=== PATIENT | male | born 1990 | race Caucasian/White ===

== ENCOUNTER 2017-01-27 08:17 | Inpatient (IN) | payer BC ==
[2017-01-27 10:06] VITALS: BMI 27.1
--- NOTE | 2017-01-27 11:25 | HP ---
Admission [facility] Chief Complaint: REHAB TX FOR OPIOID DEPENDENCE Allergies/Adverse Reactions: Allergies Allergy/AdvReac Type Severity Reaction Status Date / Time NKDA Allergy Uncoded 01/27/17 10:23 History of Present Illness: 26 Y/O H/M WITH A HX OF HEROIN DEPENDENCE ON MMTP SEEKING REHAB TX. Exam Limitations: No Limitations - Ebola screening Have you traveled outside of the country in the last 21 days: No Have you had contact with anyone from an Ebola affected area: No Have you been sick,other than usual withdrawal symptoms: No Do you have a fever: No - Review of Systems Constitutional: Chills, Night Sweats, Changes in sleep EENT: reports: Blurred Vision, Tearing, Nose Congestion Respiratory: reports: No Symptoms reported Cardiac: reports: Lightheadedness GI: reports: Constipated, Diarrhea, Nausea, Poor Fluid Intake, Vomiting : reports: Dysuria Musculoskeletal: reports: Back Pain, Joint Pain, Muscle Pain Integumentary: reports: Bruising (IVD INJ SITES ON BOTH FOREARMS) Neuro: reports: Headache, Dizziness Endocrine: reports: No Symptoms Reported Hematology: reports: No Symptoms Reported Psychiatric: reports: Orientated x3, Anxious Other Systems: Reviewed and Negative Patient History - Patient Medical History Hx Anemia: No Hx Asthma: No Hx Chronic Obstructive Pulmonary Disease (COPD): No Hx Cardiac Disorders: No Hx Hypertension: No Hx Hypercholesterolemia: No HX Cerebrovascular Accident: No Hx Seizures: No Hx Diabetes: No Hx Gastrointestinal Disorders: No Hx Genitourinary Disorders: No Hx Sexually Transmitted Disorders: No Hx Renal Disease (ESRD): No Hx Thyroid Disease: No Hx Human Immunodeficiency Virus (HIV): No (DON'T REMEMBER TESTING BUT WANTS ONE TODAY.) Hx Hepatitis C: No Hx Depression: No Hx Suicide Attempt: No (DENIES) Hx Schizophrenia: No - Patient Surgical History Past Surgical History: No Hx Neurologic Surgery: No Hx Cataract Extraction: No Hx Cardiac Surgery: No Hx Lung Surgery: No Hx Breast Surgery: No Hx Breast Biopsy: No Hx Abdominal Surgery: No Hx Appendectomy: No Hx Cholecystectomy: No Hx Genitourinary Surgery: No Hx Orthopedic Surgery: No Anesthesia Reaction: No - PPD History Previous Implant?: Yes Documented Results: Negative w/o proof Implanted On Prior R Admission?: No PPD to be Administered?: Yes - Reproductive History Patient is a Female of Child Bearing Age (11 -55 yrs old): No (MALE) - Smoking Cessation Smoking history: Current every day smoker Have you smoked in the past 12 months: Yes Aproximately how many cigarettes per day: 8 Cigars Per Day: 0 Hx Chewing Tobacco Use: No Initiated information on smoking cessation: Yes 'Breaking Loose' booklet given: 01/27/17 - Substance & Tx. History Hx Alcohol Use: No Hx Substance Use: Yes (HEROIN) Substance Use Type: Heroin Hx Substance Use Treatment: Yes (CURRENTLY IN [facility]; LAST DOSE TODAY METHADONE 45 MG DAILY) - Substances Abused Heroin Route: Injection Frequency: Daily Amount used: 10 BAGS DAILY ($100) Age of first use: 22 Date of Last Use: 01/20/17 Family Disease History - Family Disease History Family History: Denies Admission Physical Exam [facility] Vital Signs Vital Signs: Vital Signs - 24 hr 01/27/17 10:02 Temperature 97 F L Pulse Rate 61 Respiratory 20 Rate Blood Pressure 119/69 - Physical General Appearance: Yes: No Apparent Distress, Nourished, Anxious, Other ( DROWSY BUT AROUSABLE) HEENTM: Yes: EOMI, Normocephalic, KASH, Pharynx Normal Respiratory: Yes: Chest Non-Tender, Lungs Clear, Normal Breath Sounds, No Respiratory Distress Neck: Yes: No masses,lesions,Nodules, Supple, Trachea in good position Breast: Yes: Breast Exam Deferred Cardiology: Yes: Regular Rhythm, Regular Rate, S1, S2 Abdominal: Yes: Normal Bowel Sounds, Non Tender, Soft Genitourinary: Yes: Other (N/C) Back: Yes: Within Normal Limits Musculoskeletal: Yes: full range of Motion, Gait Steady Extremities: Yes: Normal Range of Motion, Non-Tender Neurological: Yes: 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 - Detox or Rehab Claeared for Rehab Admission: Yes BHS Breath Alcohol Content Breath Alcohol Content: 0 Urine Drug Screen - Results Drug Screen Negative: No Urine Drug Screen Results: MTD-Methadone
[2017-01-27] MEDS ORDERED: MAG HYDROX/AL HYDROX/SIMETH 30 ML UNIT-DOSE CUP PO PRN (11:39)
[2017-01-27] MEDS ORDERED: MAGNESIUM CITRATE 300 ML BOTTLE PO PRN (11:39)
[2017-01-27] MEDS ORDERED: LOPERAMIDE HCL 2 MG CAPSULE PO PRN (11:39)
[2017-01-27] MEDS ORDERED: NICOTINE POLACRILEX 2 MG GUM BUC PRN (11:39)
[2017-01-27] MEDS ORDERED: diphenhydrAMINE HCL 50 MG CAPSULE PO PRN (11:39)
[2017-01-27] MEDS ORDERED: hydrOXYzine PAMOATE 25 MG CAPSULE (FP) PO PRN (11:39)
[2017-01-27] MEDS ORDERED: MENTHOL/PHENOL 1 EACH UD MM PRN (11:39)
[2017-01-27] MEDS ORDERED: guaiFENesin/D-METHORPHAN HB 10 ML UNIT-DOSE CUPS PO PRN (11:39)
[2017-01-27] MEDS ORDERED: P-EPHED 60MG/TRIPROLIDI 2.5MG TABLET PO PRN (11:39)
[2017-01-27] MEDS ORDERED: IBUPROFEN 400 MG TABLET (FP) PO PRN (11:39)
[2017-01-27] MEDS ORDERED: MAGNESIUM HYDROX 2400MG/30ML ORAL SUSPENSION 30 ML CUP PO PRN (11:39)
[2017-01-27 13:16] LABS: MCH 31.7 pg (25.7-33.7); MCHC 35.1 g/dl (32.0-35.9); MEAN CELL VOLUME 90.5 fl (80-96); MEAN PLT VOLUME 9.1 fl (7.5-11.1); PLATELET COUNT 155 K/MM3 (134-434); RDW 13.4 % (11.9-15.9); WHITE BLOOD COUNT 5.1 K/mm3 (4.0-10.0)
[2017-01-27 13:28] LABS: ALK PHOS 64 U/L (45-117); ANION GAP 5 (8-16); BILIRUBIN,TOTAL 0.6 mg/dL (0.2-1.0); CALCIUM 9.1 mg/dL (8.5-10.1); CO2 33 mmol/L (21-32); CREATININE 1.1 mg/dL (0.7-1.3); GLUCOSE,RANDOM 97 mg/dL (74-106); SGOT/AST 24 U/L (15-37); SGPT/ALT 31 U/L (12-78); TOT PROT 7.6 g/dl (6.4-8.2)
[2017-01-27] MEDS: NICOTINE 14 MG/24 HOURS TOPICAL PATCH TD SCH (13:39)
[2017-01-27 13:49] LABS: HIV 1 & 2 AB NEGATIVE; HIV 1 AGp24 NEGATIVE
--- NOTE | 2017-01-27 14:05 | HP ---
Psychiatrist Admission - Data Date of interview: 01/27/17 Admission source: [facility] Identifying data: This is the first 5N inpatient rehabilitation admission for this 26 year old single male, who is unemployed and residing in senior living. Medical History: reports a good physical health, smokes cigaretets 7 a day, on MMTP 45 mg/daily. Psychiatric History: denies history of psychiatric treatment. Physical/Sexual Abuse/Trauma History: denies history of sexual, physical and verbal abuse. Additional Comment: reports has a twin brother who is at [facility] program, patient reports mother when he was 13 year old, raised by grandmother. Vital Signs: Vital Signs - 24 hr 01/27/17 01/27/17 10:02 13:45 Temperature 97 F L 97.3 F L Pulse Rate 61 56 L Respiratory 20 18 Rate Blood Pressure 119/69 120/81 Allergies/Adverse Reactions: Allergies Allergy/AdvReac Type Severity Reaction Status Date / Time No Known Drug Allergies Allergy Unknown Verified 01/27/17 12:10 NKDA Allergy Uncoded 01/27/17 10:23 Date of last physical exam: 01/27/17 Concur with the findings of this exam: Yes - Substance Abuse/Tx History Hx Alcohol Use: No Hx Substance Use: Yes Substance Use Type: Heroin (inecting heroin, re[orts he relapsed twice on heroin , started heroin when was 22 year old) Hx Substance Use Treatment: Yes ([facility]) - Admission Criteria Previous failed treatment: Yes Poor recovery environment: Yes Comorbidities: No Lacks judgement: Yes Mental Status Exam - Mental Status Exam Alert and Oriented to: Time, Place, Person Cognitive Function: Good Patient Appearance: Well Groomed Mood: Anxious Affect: Appropriate, Mood Congruent, Normal Range Patient Behavior: Appropriate, Cooperative Speech Pattern: Clear, Appropriate Voice Loudness: Normal Thought Process: Intact Thought Disorder: Not Present Hallucinations: Denies Suicidal Ideation: Denies Homicidal Ideation: Denies Insight/Judgement: Fair Sleep: Difficulty falling asleep Appetite: Good Muscle strength/Tone: Normal Gait/Station: Normal Psychiatric Findings - Problem List ([place] 1, 2,3) (1) Nicotine dependence Current Visit: Yes Status: Acute Qualifiers: Nicotine product type: cigarettes Substance use status: in withdrawal Qualified Code(s): F17.213 - Nicotine dependence, cigarettes, with withdrawal (2) Methadone maintenance therapy patient Current Visit: Yes Status: Chronic (3) Opioid dependence Current Visit: Yes Status: Acute (4) Opioid-induced sleep disorder Current Visit: Yes Status: Acute - Initial Treatment Plan Initial Treatment Plan: patient made aware of a Benadryl PRN for insomnia and Vistaril PRN for anxiety, monitor progress as needed.
[2017-01-27] MEDS ORDERED: TUBERCULIN PPD 5 TU/0.1ML VIAL ID ONE (14:16)
[2017-01-27 15:08] LABS: SICKLE CELL SCREEN NEGATIVE (NEGATIVE)
[2017-01-27 17:34] LABS: URINE APPEARANCE CLEAR; URINE BILIRUBIN NEGATIVE (NEGATIVE); URINE BLOOD NEGATIVE (NEGATIVE); URINE COLOR YELLOW; URINE GLUCOSE (UA) NEGATIVE (NEGATIVE); URINE KETONE NEGATIVE (NEGATIVE); URINE LEUK ESTERASE TRACE (NEGATIVE); URINE NITRITE NEGATIVE (NEGATIVE); URINE PROTEIN NEGATIVE (NEGATIVE); URINE UROBILINOGEN NEGATIVE mg/dL (0.2-1.0)
[2017-01-27 17:43] LABS: URINE BACTERIA RARE /hpf (NONE SEEN); URINE HYALINE CAST 1 /lpf; URINE MUCUS RARE; URINE RBC <1 /hpf (0-3); URINE WBC 1 /hpf (3-5)
[2017-01-27] MEDS: THIAMINE HCL 100 MG TABLET (FP) PO SCH (21:47)
[2017-01-27] MEDS: hydrOXYzine PAMOATE 50 MG CAPSULE (FP) PO PRN (21:49)
[2017-01-28] MEDS ORDERED: METHADONE HCL 5 MG TABLET ONE (05:34)
[2017-01-28] MEDS ORDERED: METHADONE HCL 40 MG DISPERSABLE TABLET ONE (05:35)
[2017-01-28] MEDS ORDERED: METHADONE HCL 40 MG DISPERSABLE TABLET PO SCH (06:00)
[2017-01-28] MEDS: METHADONE 40 MG, METHADONE 5 MG PO SCH (06:38)
[2017-01-28] MEDS: PRENATAL VITAMINS W/ FOLIC ACID TABLET (FP) PO SCH (09:58)
[2017-01-28] MEDS: NICOTINE 14 MG/24 HOURS TOPICAL PATCH TD SCH (09:58)
[2017-01-28] MEDS: hydrOXYzine PAMOATE 50 MG CAPSULE (FP) PO PRN ×2 (10:00→21:27)
[2017-01-28] MEDS: THIAMINE HCL 100 MG TABLET (FP) PO SCH (21:26)
[2017-01-29] MEDS ORDERED: METHADONE HCL 40 MG DISPERSABLE TABLET ONE (03:33)
[2017-01-29] MEDS ORDERED: METHADONE HCL 5 MG TABLET ONE (03:33)
[2017-01-29] MEDS: METHADONE 40 MG, METHADONE 5 MG PO SCH (06:32)
[2017-01-29] MEDS: PRENATAL VITAMINS W/ FOLIC ACID TABLET (FP) PO SCH (09:49)
[2017-01-29] MEDS: NICOTINE 14 MG/24 HOURS TOPICAL PATCH TD SCH (09:49)
--- NOTE | 2017-01-29 12:30 | EKG ---
Test Reason : Blood Pressure : / mmHG Vent. Rate : 071 BPM Atrial Rate : 071 BPM P-R Int : 132 ms QRS Dur : 092 ms QT Int : 396 ms P-R-T Axes : 017 050 028 degrees QTc Int : 430 ms NORMAL SINUS RHYTHM NORMAL ECG NO PREVIOUS ECGS AVAILABLE Confirmed by HOLLI TORREZ, MOSHE ([id number]) on 01/29/2017 12:30:31 PM Referred By: Nan Escalante Confirmed By:MOSHE DE LA GARZA MD
[2017-01-29] MEDS: hydrOXYzine PAMOATE 50 MG CAPSULE (FP) PO PRN (21:23)
[2017-01-29] MEDS: THIAMINE HCL 100 MG TABLET (FP) PO SCH (21:25)
[2017-01-30] MEDS ORDERED: METHADONE HCL 40 MG DISPERSABLE TABLET ONE ×2 (03:25→07:24)
[2017-01-30] MEDS: METHADONE 40 MG, METHADONE 5 MG PO SCH (06:09)
[2017-01-30] MEDS ORDERED: METHADONE HCL 5 MG TABLET ONE (07:23)
[2017-01-30] MEDS: NICOTINE 14 MG/24 HOURS TOPICAL PATCH TD SCH (10:01)
[2017-01-30] MEDS: PRENATAL VITAMINS W/ FOLIC ACID TABLET (FP) PO SCH (10:01)
--- NOTE | 2017-01-30 14:34 | PN ---
BHS Progress Note Note: withdrawal,flexeril 10 mgs po tid prn,clonidine 0.1 mg po bid for 72 hrs and monitoring
[2017-01-30] MEDS: hydrOXYzine PAMOATE 50 MG CAPSULE (FP) PO PRN ×2 (16:53→21:26)
[2017-01-30] MEDS: CYCLOBENZAPRINE HCL 10 MG TABLET (FP) PO PRN (16:54)
[2017-01-30] MEDS: ACETAMINOPHEN 325 MG TABLET (FP) PO PRN (18:38)
[2017-01-30] MEDS: THIAMINE HCL 100 MG TABLET (FP) PO SCH (21:25)
[2017-01-30] MEDS: cloNIDine HCL 0.1 MG TABLET PO SCH (21:26)
[2017-01-31] MEDS ORDERED: METHADONE HCL 40 MG DISPERSABLE TABLET ONE (03:14)
[2017-01-31] MEDS ORDERED: METHADONE HCL 5 MG TABLET ONE (03:14)
[2017-01-31] MEDS: METHADONE 40 MG, METHADONE 5 MG PO SCH (06:41)
[2017-01-31] MEDS: CYCLOBENZAPRINE HCL 10 MG TABLET (FP) PO PRN ×2 (06:43→21:07)
[2017-01-31] MEDS: PRENATAL VITAMINS W/ FOLIC ACID TABLET (FP) PO SCH (10:15)
[2017-01-31] MEDS: NICOTINE 14 MG/24 HOURS TOPICAL PATCH TD SCH (10:16)
[2017-01-31] MEDS: cloNIDine HCL 0.1 MG TABLET PO SCH ×2 (10:17→21:06)
[2017-01-31] MEDS: THIAMINE HCL 100 MG TABLET (FP) PO SCH (21:06)
[2017-01-31] MEDS: hydrOXYzine PAMOATE 50 MG CAPSULE (FP) PO PRN (21:09)
[2017-02-01] MEDS ORDERED: METHADONE HCL 5 MG TABLET ONE (05:10)
[2017-02-01] MEDS ORDERED: METHADONE HCL 40 MG DISPERSABLE TABLET ONE (05:10)
[2017-02-01] MEDS: METHADONE 40 MG, METHADONE 5 MG PO SCH (06:24)
[2017-02-01] MEDS: cloNIDine HCL 0.1 MG TABLET PO SCH ×2 (10:01→21:58)
[2017-02-01] MEDS: CYCLOBENZAPRINE HCL 10 MG TABLET (FP) PO PRN ×2 (10:01→22:00)
[2017-02-01] MEDS: PRENATAL VITAMINS W/ FOLIC ACID TABLET (FP) PO SCH (10:01)
[2017-02-01] MEDS: NICOTINE 14 MG/24 HOURS TOPICAL PATCH TD SCH (10:02)
[2017-02-01] MEDS: THIAMINE HCL 100 MG TABLET (FP) PO SCH (21:58)
[2017-02-01] MEDS: hydrOXYzine PAMOATE 50 MG CAPSULE (FP) PO PRN (22:04)
[2017-02-02] MEDS ORDERED: METHADONE HCL 5 MG TABLET ONE (03:06)
[2017-02-02] MEDS ORDERED: METHADONE HCL 40 MG DISPERSABLE TABLET ONE (03:06)
[2017-02-02] MEDS: METHADONE 40 MG, METHADONE 5 MG PO SCH (06:22)
[2017-02-02] MEDS: CYCLOBENZAPRINE HCL 10 MG TABLET (FP) PO PRN ×2 (06:24→21:38)
[2017-02-02] MEDS: cloNIDine HCL 0.1 MG TABLET PO SCH ×2 (10:07→21:36)
[2017-02-02] MEDS: PRENATAL VITAMINS W/ FOLIC ACID TABLET (FP) PO SCH (10:07)
[2017-02-02] MEDS: NICOTINE 14 MG/24 HOURS TOPICAL PATCH TD SCH (10:08)
[2017-02-02] MEDS: THIAMINE HCL 100 MG TABLET (FP) PO SCH (21:37)
[2017-02-02] MEDS: hydrOXYzine PAMOATE 50 MG CAPSULE (FP) PO PRN (21:37)
[2017-02-03] MEDS ORDERED: METHADONE HCL 5 MG TABLET ONE (03:41)
[2017-02-03] MEDS ORDERED: METHADONE HCL 40 MG DISPERSABLE TABLET ONE (03:41)
[2017-02-03] MEDS: METHADONE 40 MG, METHADONE 5 MG PO SCH (06:18)
[2017-02-03] MEDS: PRENATAL VITAMINS W/ FOLIC ACID TABLET (FP) PO SCH (10:15)
[2017-02-03] MEDS: hydrOXYzine PAMOATE 50 MG CAPSULE (FP) PO PRN ×2 (10:15→21:33)
[2017-02-03] MEDS: NICOTINE 14 MG/24 HOURS TOPICAL PATCH TD SCH (10:16)
[2017-02-03] MEDS: THIAMINE HCL 100 MG TABLET (FP) PO SCH (21:32)
[2017-02-04] MEDS ORDERED: METHADONE HCL 40 MG DISPERSABLE TABLET ONE (03:23)
[2017-02-04] MEDS ORDERED: METHADONE HCL 5 MG TABLET ONE (03:23)
[2017-02-04] MEDS ORDERED: METHADONE HCL 10 MG TABLET PO SCH (06:00)
[2017-02-04] MEDS: METHADONE 40 MG, METHADONE 5 MG PO SCH ×2 (06:20)
[2017-02-04] MEDS: PRENATAL VITAMINS W/ FOLIC ACID TABLET (FP) PO SCH (10:53)
[2017-02-04] MEDS: NICOTINE 14 MG/24 HOURS TOPICAL PATCH TD SCH (10:53)
[2017-02-04] MEDS: THIAMINE HCL 100 MG TABLET (FP) PO SCH (21:43)
[2017-02-04] MEDS: hydrOXYzine PAMOATE 50 MG CAPSULE (FP) PO PRN (21:44)
[2017-02-04] MEDS: ACETAMINOPHEN 325 MG TABLET (FP) PO PRN (21:44)
[2017-02-05] MEDS ORDERED: METHADONE HCL 5 MG TABLET ONE (03:32)
[2017-02-05] MEDS ORDERED: METHADONE HCL 40 MG DISPERSABLE TABLET ONE (03:32)
[2017-02-05] MEDS: METHADONE 40 MG, METHADONE 5 MG PO SCH ×2 (06:33)
[2017-02-05] MEDS: NICOTINE 14 MG/24 HOURS TOPICAL PATCH TD SCH (10:09)
[2017-02-05] MEDS: PRENATAL VITAMINS W/ FOLIC ACID TABLET (FP) PO SCH (10:09)
[2017-02-05] MEDS: THIAMINE HCL 100 MG TABLET (FP) PO SCH (21:14)
[2017-02-06] MEDS ORDERED: METHADONE HCL 5 MG TABLET ONE (05:08)
[2017-02-06] MEDS ORDERED: METHADONE HCL 40 MG DISPERSABLE TABLET ONE (05:08)
[2017-02-06] MEDS: METHADONE 40 MG, METHADONE 5 MG PO SCH ×2 (06:10→06:11)
[2017-02-06] MEDS: NICOTINE 14 MG/24 HOURS TOPICAL PATCH TD SCH (10:16)
[2017-02-06] MEDS: PRENATAL VITAMINS W/ FOLIC ACID TABLET (FP) PO SCH (10:16)
[2017-02-06] MEDS: hydrOXYzine PAMOATE 50 MG CAPSULE (FP) PO PRN (21:38)
[2017-02-06] MEDS: THIAMINE HCL 100 MG TABLET (FP) PO SCH (21:38)
[2017-02-07] MEDS ORDERED: METHADONE HCL 40 MG DISPERSABLE TABLET ONE (04:16)
[2017-02-07] MEDS ORDERED: METHADONE HCL 5 MG TABLET ONE (04:16)
[2017-02-07] MEDS: METHADONE 40 MG, METHADONE 5 MG PO SCH ×2 (06:41→06:43)
[2017-02-07] MEDS: NICOTINE 14 MG/24 HOURS TOPICAL PATCH TD SCH (09:53)
[2017-02-07] MEDS: PRENATAL VITAMINS W/ FOLIC ACID TABLET (FP) PO SCH (09:53)
[2017-02-07] MEDS: THIAMINE HCL 100 MG TABLET (FP) PO SCH (21:41)
[2017-02-07] MEDS: hydrOXYzine PAMOATE 50 MG CAPSULE (FP) PO PRN (21:42)
[2017-02-08] MEDS ORDERED: METHADONE HCL 5 MG TABLET ONE (03:29)
[2017-02-08] MEDS ORDERED: METHADONE HCL 40 MG DISPERSABLE TABLET ONE (03:29)
[2017-02-08] MEDS: METHADONE 40 MG, METHADONE 5 MG PO SCH ×2 (06:43→06:45)
[2017-02-08] MEDS: PRENATAL VITAMINS W/ FOLIC ACID TABLET (FP) PO SCH (10:16)
[2017-02-08] MEDS: NICOTINE 14 MG/24 HOURS TOPICAL PATCH TD SCH (10:16)
[2017-02-08] MEDS: THIAMINE HCL 100 MG TABLET (FP) PO SCH (21:41)
[2017-02-08] MEDS: hydrOXYzine PAMOATE 50 MG CAPSULE (FP) PO PRN (21:42)
[2017-02-09] MEDS ORDERED: METHADONE HCL 5 MG TABLET ONE (05:20)
[2017-02-09] MEDS ORDERED: METHADONE HCL 40 MG DISPERSABLE TABLET ONE (05:20)
[2017-02-09] MEDS: METHADONE 40 MG, METHADONE 5 MG PO SCH ×2 (06:32→06:33)
[2017-02-09] MEDS: PRENATAL VITAMINS W/ FOLIC ACID TABLET (FP) PO SCH (10:36)
[2017-02-09] MEDS: NICOTINE 14 MG/24 HOURS TOPICAL PATCH TD SCH (10:37)
[2017-02-09] MEDS: THIAMINE HCL 100 MG TABLET (FP) PO SCH (21:29)
[2017-02-09] MEDS: hydrOXYzine PAMOATE 50 MG CAPSULE (FP) PO PRN (21:30)
[2017-02-10] MEDS ORDERED: METHADONE HCL 10 MG TABLET PO SCH (06:00)
[2017-02-10] MEDS ORDERED: METHADONE HCL 40 MG DISPERSABLE TABLET ONE (06:23)
[2017-02-10] MEDS ORDERED: METHADONE HCL 5 MG TABLET ONE (06:23)
[2017-02-10] MEDS: METHADONE 40 MG, METHADONE 5 MG PO SCH (06:51)
[2017-02-10] MEDS: PRENATAL VITAMINS W/ FOLIC ACID TABLET (FP) PO SCH (10:19)
[2017-02-10] MEDS: NICOTINE 14 MG/24 HOURS TOPICAL PATCH TD SCH (10:19)
[2017-02-10] MEDS: hydrOXYzine PAMOATE 50 MG CAPSULE (FP) PO PRN (21:30)
[2017-02-10] MEDS: THIAMINE HCL 100 MG TABLET (FP) PO SCH (21:30)
[2017-02-11] MEDS ORDERED: METHADONE HCL 5 MG TABLET ONE (03:44)
[2017-02-11] MEDS ORDERED: METHADONE HCL 40 MG DISPERSABLE TABLET ONE (03:44)
[2017-02-11] MEDS: METHADONE 40 MG, METHADONE 5 MG PO SCH (06:13)
[2017-02-11 07:01] VITALS: BP 125/69; PULSE 82; TEMP 97.8
[2017-02-11] MEDS: PRENATAL VITAMINS W/ FOLIC ACID TABLET (FP) PO SCH (10:19)
[2017-02-11] MEDS: NICOTINE 14 MG/24 HOURS TOPICAL PATCH TD SCH (10:19)
--- NOTE | 2017-02-11 10:22 | PN ---
Psychiatric Progress Note Vital Signs: Vital Signs Period Temp Pulse Resp BP Sys/[place] Pulse Ox Last 24 Hr 97.8 F 82 18-18 125/69 Date of Session: 02/11/17 Chief Complaint:: Discharge visit HPI: Patient has addressed opioid, nicotine dependence comorbid Opioid induced sleep disorder. ROS: WNL Current Medications: Active Medications Generic Name Dose Route Start Last Admin Trade Name Freq PRN Reason Stop Dose Admin Acetaminophen 650 mg 01/27/17 11:39 02/04/17 21:44 Tylenol - PO 650 mg Q4H PRN Administration PAIN Al Hydroxide/Mg Hydroxide 30 ml 01/27/17 11:39 Mylanta Oral Suspension - PO Q6H PRN DYSPEPSIA Diphenhydramine HCl 50 mg 01/27/17 11:39 02/05/17 21:14 Benadryl - PO 50 mg HSMR1 PRN Administration INSOMNIA Eucalyptus/Menthol/Phenol/Sorbitol 1 each 01/27/17 11:39 Cepastat Lozenge - MM Q4H PRN SORE THROAT Guaifenesin 10 ml 01/27/17 11:39 Robitussin Dm - PO Q6H PRN COUGH Hydroxyzine Pamoate 50 mg 01/27/17 14:17 02/10/17 21:30 Vistaril - PO 50 mg Q4H PRN Administration ANXIETY Ibuprofen 400 mg 01/27/17 11:39 01/29/17 21:24 Motrin - PO 400 mg Q6H PRN Administration SEVERE PAIN Loperamide HCl 4 mg 01/27/17 11:39 Imodium - PO Q6H PRN DIARRHEA Magnesium Citrate 300 ml 01/27/17 11:39 Citroma - PO Q48H PRN CONSTIPATION Magnesium Hydroxide 30 ml 01/27/17 11:39 Milk Of Magnesia - PO DAILY PRN CONSTIPATION Methadone HCl 40 mg/ Methadone 45 mg 02/10/17 06:00 02/11/17 06:13 HCl 5 mg PO 45 mg DAILY@0600 LONNIE Administration Nicotine 14 mg 01/27/17 12:11 02/10/17 10:19 Nicoderm Patch - TD 14 mg DAILY LONNIE Administration Nicotine Polacrilex 2 mg 01/27/17 11:39 Nicorette Gum - BUC Q2H PRN NICOTINE REPLACEMENT RX Multivit/Folic Acid/Iron 1 tab 01/28/17 10:00 02/10/17 10:19 Vitamins (Sjr) - PO 1 tab DAILY LONNIE Administration Pseudoephedrine/Triprolidine 1 combo 01/27/17 11:39 Actifed - PO TID PRN NASAL CONGESTION Thiamine HCl 100 mg 01/27/17 22:00 02/10/17 21:30 Vitamin B1 - PO 100 mg HS LONNIE Administration Current Side Effect: No Lab tests ordered: No Lab tests reviewed: Yes Provider note:: Patient has completed today his treatment and met his goals, will continue to address his issues at [facility] inpatient program. Patient reports he learned a lot through this program: ways to cope with stressors, utilizing all supports to prevent relapses and negative impact of drugs on physical and mental health. Patient was encouraged to continue maintain abstinence and follow all aspects of his aftercare plans. Patient is stable for discharge today. Total face to face time:: 30 Mental Status Exam - Mental Status Exam Alert and Oriented to: Time, Place Cognitive Function: Good Patient Appearance: Well Groomed Mood: Hopeful Affect: Appropriate, Mood Congruent Patient Behavior: Appropriate, Cooperative Speech Pattern: Clear, Appropriate Voice Loudness: Normal Thought Process: Intact, Goal Oriented Thought Disorder: Not Present Hallucinations: Denies Suicidal Ideation: Denies Homicidal Ideation: Denies Insight/Judgement: Fair Sleep: Fair Appetite: Fair Muscle strength/Tone: Normal Gait/Station: Normal Psychiatric Treatment Plan - Problem List (1) Nicotine dependence Current Visit: Yes Qualifiers: Nicotine product type: cigarettes Substance use status: in withdrawal Qualified Code(s): F17.213 - Nicotine dependence, cigarettes, with withdrawal (2) Methadone maintenance therapy patient Current Visit: Yes (3) Opioid dependence Current Visit: Yes (4) Opioid-induced sleep disorder Current Visit: Yes
== END 2017-02-11 10:20 | disposition home or self-care (01) | DRG 772 ==
LOC: YASAS 08:17 → Y5N 12:02
PROVIDERS: ADMIT Psychiatry & Neurology Psychiatry; ATTEND Psychiatry & Neurology Psychiatry
PROC: HZ42ZZZ Group Counseling for Substance Abuse Treatment, Cognitive-Behavioral (ICD-10-PCS; principal; 2017-01-27)
DX: F11.20 Opioid dependence, uncomplicated (principal); F11.282 Opioid dependence with opioid-induced sleep disorder; F17.213 Nicotine dependence, cigarettes, with withdrawal
CPT/HCPCS: 36415; 80053; 81003; 81015; 85027; 85660; 86593; 87389; 93005; 93010

== ENCOUNTER 2017-09-05 13:14 | Inpatient (IN) | payer BC, OTHER ==
[2017-09-05 15:47] VITALS: BMI 26.9
--- NOTE | 2017-09-05 19:31 | HP ---
COWS - Scale Resting Pulse: 1= [place] 81-100 Sweatin=Flushed/Facial Moisture Restless Observation: 3= Extraneous Movement Pupil Size: 1= Pupils >than Normal Bone or Joint Aches: 1= Mild Discomfort Runny Nose/ Eye Tearin= Constantly Teary/Runny GI Upset > 30mins: 1= Stomach Cramp Tremor Observation: 0= None Yawning Observation: 4= Several Times/Minute Anxiety or Irritability: 2=Irritable/Anxious Goose Flesh Skin: 3=Piloerection COWS Score: 22 Admission ROS BHS - HPI Chief Complaint: "I am here for detox, I dont feel well I'm shaking and a lot of yawning, I want to do rehab" Allergies/Adverse Reactions: Allergies Allergy/AdvReac Type Severity Reaction Status Date / Time No Known Drug Allergies Allergy Unknown Verified 09/05/17 19:04 NKDA Allergy Uncoded 09/05/17 19:04 History of Present Illness: 27 yo male with hx IV heroin use and nicotine dependence is here seeking detox. Reports feeling depressed and difficulty sleeping, denies any significant health problems. Denies suicidal / homicidal ideation or suicide attempt. Reports last detox last month at [facility]. Reports no significant period of sobriety. Reports hx of [facility] last attendance 6 months. Denies any hx seizure, psychiatric admission or over dose. Exam Limitations: No Limitations - Ebola screening Have you traveled outside of the country in the last 21 days: No (N) Have you had contact with anyone from an Ebola affected area: No Have you been sick,other than usual withdrawal symptoms: No Do you have a fever: No - Review of Systems Constitutional: Chills, Loss of Appetite, Changes in sleep EENT: reports: See HPI, Tearing Respiratory: reports: No Symptoms reported Cardiac: reports: No Symptoms Reported GI: reports: Constipated, Poor Appetite, Poor Fluid Intake, Abdominal cramping : reports: No Symptoms Reported Musculoskeletal: reports: Joint Pain Integumentary: reports: No Symptoms Reported Neuro: reports: No Symptoms reported Endocrine: reports: Excessive Sweating Hematology: reports: No Symptoms Reported Psychiatric: reports: Orientated x3, Depressed Other Systems: Reviewed and Negative Patient History - Patient Medical History Hx Anemia: No Hx Asthma: No Hx Chronic Obstructive Pulmonary Disease (COPD): No Hx Cancer: No Hx Cardiac Disorders: No Hx Congestive Heart Failure: No Hx Hypertension: No Hx Hypercholesterolemia: No Hx Pacemaker: No HX Cerebrovascular Accident: No Hx Seizures: No Hx Dementia: No Hx Diabetes: No Hx Gastrointestinal Disorders: No Hx Liver Disease: No Hx Genitourinary Disorders: No Hx Sexually Transmitted Disorders: No Hx Renal Disease (ESRD): No Hx Thyroid Disease: No Hx Human Immunodeficiency Virus (HIV): No (DON'T REMEMBER TESTING BUT WANTS ONE TODAY.) Hx Hepatitis C: No Hx Depression: No Hx Suicide Attempt: No (DENIES) Hx Schizophrenia: No - Patient Surgical History Past Surgical History: No Hx Neurologic Surgery: No Hx Cataract Extraction: No Hx Cardiac Surgery: No Hx Lung Surgery: No Hx Breast Surgery: No Hx Breast Biopsy: No Hx Abdominal Surgery: No Hx Appendectomy: No Hx Cholecystectomy: No Hx Genitourinary Surgery: No Hx Section: No Hx Orthopedic Surgery: No Anesthesia Reaction: No - PPD History Previous Implant?: Yes Documented Results: Negative w/proof Implanted On Prior [facility] Admission?: Yes Date: 01/29/17 PPD to be Administered?: No - Reproductive History Patient is a Female of Child Bearing Age (11 -55 yrs old): No - Smoking Cessation Smoking history: Current every day smoker Have you smoked in the past 12 months: Yes Aproximately how many cigarettes per day: 20 Cigars Per Day: 0 Hx Chewing Tobacco Use: No Initiated information on smoking cessation: Yes 'Breaking Loose' booklet given: 09/05/17 - Substance & Tx. History Hx Alcohol Use: No Hx Substance Use: Yes Substance Use Type: Heroin Hx Substance Use Treatment: Yes ([facility] three weeks ago ) - Substances Abused Heroin Route: Injection Frequency: Daily Amount used: 10 bags Age of first use: 22 Date of Last Use: 09/05/17 Family Disease History - Family Disease History Family History: Denies Admission Physical Exam [facility] - Vital Signs Vital Signs: Vital Signs - 24 hr 09/05/17 15:45 Temperature 97.2 F L Pulse Rate 84 Respiratory 16 Rate Blood Pressure 119/79 - Physical General Appearance: Yes: Disheveled, Mild Distress, Sweating, Anxious HEENTM: Yes: EOMI, Hearing grossly Normal, Normal ENT Inspection, Normocephalic , Normal Voice, KASH, Pharynx Normal, Tm's normal Respiratory: Yes: Chest Non-Tender, Lungs Clear, Normal Breath Sounds, No Respiratory Distress, No Accessory Muscle Use Neck: Yes: No masses,lesions,Nodules, Trachea in good position Breast: Yes: Breast Exam Deferred Cardiology: Yes: Regular Rhythm, Regular Rate, S1, S2 Abdominal: Yes: Normal Bowel Sounds, Non Tender, Flat, Soft Genitourinary: Yes: Within Normal Limits Back: Yes: Normal Inspection Musculoskeletal: Yes: full range of Motion, Gait Steady, Pelvis Stable Neurological: 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 - Diagnostic (1) Opioid dependence with withdrawal Current Visit: Yes Status: Acute (2) Difficulty sleeping Current Visit: Yes Status: Acute (3) Depressed affect Current Visit: Yes Status: Acute (4) Nicotine dependence Current Visit: Yes Status: Chronic Qualifiers: Nicotine product type: cigarettes Substance use status: in withdrawal Qualified Code(s): F17.213 - Nicotine dependence, cigarettes, with withdrawal BHS Breath Alcohol Content Breath Alcohol Content: 0 Urine Drug Screen - Results Drug Screen Negative: No Urine Drug Screen Results: OPI-Opiates, MTD-Methadone
[2017-09-05] MEDS ORDERED: METHADONE HCL 10 MG TABLET (FOR DETOX USE ONLY) PO ONE ×2 (19:45→23:00)
[2017-09-05] MEDS ORDERED: NICOTINE POLACRILEX 2 MG GUM BC PRN (19:45)
[2017-09-05] MEDS ORDERED: guaiFENesin/D-METHORPHAN HB 10 ML UNIT-DOSE CUPS PO PRN (19:45)
[2017-09-05] MEDS ORDERED: LOPERAMIDE HCL 2 MG CAPSULE PO PRN (19:45)
[2017-09-05] MEDS ORDERED: MAGNESIUM CITRATE 300 ML BOTTLE PO PRN (19:45)
[2017-09-05] MEDS ORDERED: MENTHOL/PHENOL 1 EACH UD MM PRN (19:45)
[2017-09-05] MEDS ORDERED: hydrOXYzine PAMOATE 50 MG CAPSULE (FP) PO PRN (19:45)
[2017-09-05] MEDS ORDERED: P-EPHED 60MG/TRIPROLIDI 2.5MG TABLET PO PRN (19:45)
[2017-09-05] MEDS ORDERED: MAG HYDROX/AL HYDROX/SIMETH 30 ML UNIT-DOSE CUP PO PRN (19:45)
[2017-09-05] MEDS ORDERED: ACETAMINOPHEN 325 MG TABLET (FP) PO PRN (19:45)
[2017-09-05] MEDS ORDERED: MAGNESIUM HYDROX 2400MG/30ML ORAL SUSPENSION 30 ML CUP PO PRN (19:45)
[2017-09-05] MEDS ORDERED: IBUPROFEN 400 MG TABLET (FP) PO PRN (19:45)
[2017-09-05] MEDS: diazePAM 5 MG TABLET PO PRN (20:31)
[2017-09-05] MEDS: THIAMINE HCL 100 MG TABLET (FP) PO SCH (22:30)
[2017-09-06 00:29] LABS: URINE APPEARANCE TURBID; URINE BILIRUBIN NEGATIVE (NEGATIVE); URINE BLOOD NEGATIVE (NEGATIVE); URINE COLOR YELLOW; URINE GLUCOSE (UA) NEGATIVE (NEGATIVE); URINE KETONE NEGATIVE (NEGATIVE); URINE LEUK ESTERASE TRACE (NEGATIVE); URINE NITRITE NEGATIVE (NEGATIVE); URINE PROTEIN NEGATIVE (NEGATIVE)
[2017-09-06 00:47] LABS: URINE BACTERIA MODERATE /hpf (NONE SEEN); URINE MUCUS RARE; YEAST MANY
[2017-09-06] MEDS ORDERED: METHADONE HCL 10 MG TABLET (FOR DETOX USE ONLY) PO ONE (10:00)
[2017-09-06] MEDS: PRENATAL VITAMINS W/ FOLIC ACID TABLET (FP) PO SCH (10:23)
[2017-09-06] MEDS: diazePAM 5 MG TABLET PO PRN ×2 (10:23→22:33)
[2017-09-06] MEDS: NICOTINE 21 MG/24 HOURS TOPICAL PATCH TD SCH (10:24)
[2017-09-06 11:14] LABS: CHLORIDE 101 mmol/L (98-107); HEMATOCRIT 43.7 % (35.4-49); HEMOGLOBIN 15.1 GM/dL (11.7-16.9); MCH 32.2 pg (25.7-33.7); MCHC 34.6 g/dl (32.0-35.9); MEAN CELL VOLUME 93.1 fl (80-96); MEAN PLT VOLUME 8.5 fl (7.5-11.1); PLATELET COUNT 171 K/MM3 (134-434); POTASSIUM 4.2 mmol/L (3.5-5.1); RDW 13.1 % (11.9-15.9); SODIUM 138 mmol/L (136-145); WHITE BLOOD COUNT 5.6 K/mm3 (4.0-10.0)
[2017-09-06 11:27] LABS: ALBUMIN 3.7 g/dl (3.4-5.0); ALK PHOS 53 U/L (45-117); ANION GAP 6 (8-16); BILIRUBIN,TOTAL 0.6 mg/dL (0.2-1.0); BLOOD UREA NITROGEN 14 mg/dL (7-18); CALCIUM 8.6 mg/dL (8.5-10.1); CO2 31 mmol/L (21-32); CREATININE 0.9 mg/dL (0.7-1.3); GLUCOSE,RANDOM 83 mg/dL (74-106); SGOT/AST 14 U/L (15-37); SGPT/ALT 28 U/L (12-78); TOT PROT 7.2 g/dl (6.4-8.2)
--- NOTE | 2017-09-06 11:51 | CONSULT ---
[facility] Psychiatric Consult - Data Date of interview: 09/06/17 Admission source: [facility] Identifying data: Readmission to [facility] for this 27 y/o male seeking detox treatment on for heroin dependence.Patient is single without children,homeless,unemployed and supporte by his biological father. Substance Abuse History: Patient admits to daily use of heroin (IV) for more than five years.Details to be found in current [facility] report. Smoking history: Current every day smoker. Have you smoked in the past 12 months: Yes. Aproximately how many cigarettes per day: 20. Cigars Per Day: 0. Hx Chewing Tobacco Use: No. Initiated information on smoking cessation: Yes. 'Breaking Loose' booklet given: 09/05/17. - Substance & Tx. History. Hx Alcohol Use: No. Hx Substance Use: Yes. Substance Use Type: Heroin. Hx Substance Use Treatment: Yes ([facility] three weeks ago ). - Substances Abused. Heroin. Route: Injection. Frequency: Daily. Amount used: 10 bags. Age of first use: 22. Date of Last Use: 09/05/17 Medical History: Patient endorses good general health. Psychiatric History: Patient denies. Physical/Sexual Abuse/Trauma History: Patient denies. Additional Comment: Urine Drug Screen Results: OPI-Opiates, MTD-Methadone.Noted. Mental Status Exam - Mental Status Exam Alert and Oriented to: Time, Place, Person Cognitive Function: Good Patient Appearance: Well Groomed (short stature,tattoos on right forearm) Mood: Hopeful, Euthymic Affect: Appropriate, Normal Range Patient Behavior: Appropriate, Cooperative Speech Pattern: Clear, Appropriate Voice Loudness: Normal Thought Process: Intact, Goal Oriented Thought Disorder: Not Present Hallucinations: Denies Suicidal Ideation: Denies Homicidal Ideation: Denies Insight/Judgement: Poor Sleep: Poorly, Difficulty falling asleep Appetite: Good Muscle strength/Tone: Normal Gait/Station: Normal Psychiatric Findings - Problem List ([place] 1, 2,3) (1) Opioid dependence with withdrawal Current Visit: Yes Status: Acute (2) Nicotine dependence Current Visit: Yes Status: Acute Qualifiers: Nicotine product type: cigarettes Substance use status: in withdrawal Qualified Code(s): F17.213 - Nicotine dependence, cigarettes, with withdrawal (3) Insomnia Current Visit: Yes Status: Acute - Initial Treatment Plan Initial Treatment Plan: Psychoeducation.Sleep hygiene.Detoxification in progress.Ambien 10 mg po hs prn.Ordered at patient's request.Made aware of potential for parasomnias.Mr James consents (verbally) to this careplan.Observation.
--- NOTE | 2017-09-06 11:57 | EKG ---
Test Reason : Blood Pressure : / mmHG Vent. Rate : 065 BPM Atrial Rate : 065 BPM P-R Int : 114 ms QRS Dur : 096 ms QT Int : 392 ms P-R-T Axes : 024 065 051 degrees QTc Int : 407 ms NORMAL SINUS RHYTHM WITH SINUS ARRHYTHMIA NORMAL ECG WHEN COMPARED WITH ECG OF 27-JAN-2017 15:22, NO SIGNIFICANT CHANGE WAS FOUND Confirmed by MD ARLENE, DORCAS ([id number]) on 09/06/2017 11:57:19 AM Referred By: Confirmed By:DORCAS JACOBS MD
--- NOTE | 2017-09-06 14:25 | PN ---
B[facility] COWS - Scale Resting Pulse: 1= [place] 81-100 Sweatin= Chills/Flushing Restless Observation: 1= Difficult to Sit Still Pupil Size: 0= Normal to Room Light Bone or Joint Aches: 1= Mild Discomfort Runny Nose/ Eye Tearin= None GI Upset > 30mins: 0= None Tremor Observation of Outstretched Hands: 2= Slight Tremor Visible Yawning Observation: 1= 1-2x During Session Anxiety or Irritability: 2=Irritable/Anxious Goose Flesh Skin: 3=Piloerection COWS Score: 12 BHS Progress Note (SOAP) Subjective: Tremors, Sweating, Fatigue. Objective: PATIENT A & O X 3. NO ACUTE DISTRESS. 09/06/17 14:24 Vital Signs Temperature 98.8 F 09/06/17 13:51 Pulse Rate 94 H 09/06/17 13:51 Respiratory Rate 18 09/06/17 13:51 Blood Pressure 121/73 09/06/17 13:51 O2 Sat by Pulse Oximetry (%) Laboratory Tests 09/05/17 09/06/17 09/06/17 21:22 07:50 07:50 WBC 5.6 RBC 4.70 Hgb 15.1 Hct 43.7 MCV 93.1 MCH 32.2 MCHC 34.6 RDW 13.1 Plt Count 171 MPV 8.5 Sodium 138 Potassium 4.2 Chloride 101 Carbon Dioxide 31 Anion Gap 6 L BUN 14 D Creatinine 0.9 Creat Clearance w eGFR > 60 Random Glucose 83 Calcium 8.6 Total Bilirubin 0.6 AST 14 L D ALT 28 Alkaline Phosphatase 53 Total Protein 7.2 Albumin 3.7 Urine Color Yellow Urine Appearance Turbid Urine pH 5.0 Ur Specific [place] 1.031 Urine Protein Negative Urine Glucose (UA) Negative Urine Ketones Negative Urine Blood Negative Urine Nitrite Negative Urine Bilirubin Negative Urine Urobilinogen 2.0 Ur Leukocyte Esterase Trace Urine WBC (Auto) 56 Urine RBC (Auto) None Urine Bacteria Moderate Urine Mucus Rare Urine Yeast Many LABS NOTED. RPR RESULT PENDING. 09/06/17 14:25 Assessment: 09/06/17 14:24 WITHDRAWAL SYMPTOMS. Plan: CONTINUE DETOX. INCREASE DAILY PO FLUID INTAKE.
[2017-09-06] MEDS: THIAMINE HCL 100 MG TABLET (FP) PO SCH (22:32)
[2017-09-06] MEDS: ZOLPIDEM TARTRATE 5 MG TABLET PO PRN (22:33)
[2017-09-07] MEDS ORDERED: METHADONE HCL 5 MG TABLET (FOR DETOX USE ONLY) PO ONE (10:00)
[2017-09-07] MEDS: NICOTINE 21 MG/24 HOURS TOPICAL PATCH TD SCH (10:28)
[2017-09-07] MEDS: diazePAM 5 MG TABLET PO PRN ×2 (10:28→22:27)
[2017-09-07] MEDS: PRENATAL VITAMINS W/ FOLIC ACID TABLET (FP) PO SCH (10:28)
--- NOTE | 2017-09-07 15:00 | PN ---
BHS COWS - Scale Resting Pulse: 0= [place] 80 or Below Sweatin= Chills/Flushing Restless Observation: 3= Extraneous Movement Pupil Size: 0= Normal to Room Light Bone or Joint Aches: 2= Severe Diffuse Aches Runny Nose/ Eye Tearin= Runny Nose/Eyes GI Upset > 30mins: 2= Nausea/Diarrhea Tremor Observation of Outstretched Hands: 2= Slight Tremor Visible Yawning Observation: 1= 1-2x During Session Anxiety or Irritability: 2=Irritable/Anxious Goose Flesh Skin: 0=Smooth Skin COWS Score: 15 BHS Progress Note (SOAP) Subjective: Back pain, tremor, chills, sweating, interrupted sleep Objective: 09/07/17 14:58 Last Vital Signs Temp Pulse Resp BP Pulse Ox 96.9 F L 76 18 129/80 09/07/17 09:51 09/07/17 09:51 09/07/17 09:51 09/07/17 09:51 Laboratory Tests 09/05/17 09/06/17 09/06/17 21:22 07:50 07:50 WBC 5.6 RBC 4.70 Hgb 15.1 Hct 43.7 MCV 93.1 MCH 32.2 MCHC 34.6 RDW 13.1 Plt Count 171 MPV 8.5 Sodium 138 Potassium 4.2 Chloride 101 Carbon Dioxide 31 Anion Gap 6 L BUN 14 D Creatinine 0.9 Creat Clearance w eGFR > 60 Random Glucose 83 Calcium 8.6 Total Bilirubin 0.6 AST 14 L D ALT 28 Alkaline Phosphatase 53 Total Protein 7.2 Albumin 3.7 Urine Color Yellow Urine Appearance Turbid Urine pH 5.0 Ur Specific [place] 1.031 Urine Protein Negative Urine Glucose (UA) Negative Urine Ketones Negative Urine Blood Negative Urine Nitrite Negative Urine Bilirubin Negative Urine Urobilinogen 2.0 Ur Leukocyte Esterase Trace Urine WBC (Auto) 56 Urine RBC (Auto) None Urine Bacteria Moderate Urine Mucus Rare Urine Yeast Many RPR Titer 09/06/17 07:50 WBC RBC Hgb Hct MCV MCH MCHC RDW Plt Count MPV Sodium Potassium Chloride Carbon Dioxide Anion Gap BUN Creatinine Creat Clearance w eGFR Random Glucose Calcium Total Bilirubin AST ALT Alkaline Phosphatase Total Protein Albumin Urine Color Urine Appearance Urine pH Ur Specific [place] Urine Protein Urine Glucose (UA) Urine Ketones Urine Blood Urine Nitrite Urine Bilirubin Urine Urobilinogen Ur Leukocyte Esterase Urine WBC (Auto) Urine RBC (Auto) Urine Bacteria Urine Mucus Urine Yeast RPR Titer Nonreactive Labs noted Assessment: 09/07/17 14:59 Withdrawal symptoms Plan: Continue detox Encouraged to drink lots of water for hydration
[2017-09-07] MEDS: THIAMINE HCL 100 MG TABLET (FP) PO SCH (22:25)
[2017-09-07] MEDS: ZOLPIDEM TARTRATE 5 MG TABLET PO PRN (22:28)
[2017-09-08] MEDS ORDERED: METHADONE HCL 5 MG TABLET (FOR DETOX USE ONLY) PO ONE (10:00)
[2017-09-08] MEDS: PRENATAL VITAMINS W/ FOLIC ACID TABLET (FP) PO SCH (10:29)
[2017-09-08] MEDS: diazePAM 5 MG TABLET PO PRN (10:29)
[2017-09-08] MEDS: NICOTINE 21 MG/24 HOURS TOPICAL PATCH TD SCH (10:30)
--- NOTE | 2017-09-08 12:14 | PN ---
S COWS - Scale Resting Pulse: 1= [place] 81-100 Sweatin= Chills/Flushing Restless Observation: 3= Extraneous Movement Pupil Size: 0= Normal to Room Light Bone or Joint Aches: 4=Acute Joint/Muscle Pain Runny Nose/ Eye Tearin= Nasal Congestion GI Upset > 30mins: 0= None Tremor Observation of Outstretched Hands: 1= Tremor [place], Not Seen Yawning Observation: 1= 1-2x During Session Anxiety or Irritability: 2=Irritable/Anxious Goose Flesh Skin: 0=Smooth Skin COWS Score: 14 S Progress Note (SOAP) Subjective: ANXIETY,SWEATS,BACK ACHE. Objective: 09/08/17 12:13 Vital Signs Temperature 96.2 F L 09/08/17 09:50 Pulse Rate 90 09/08/17 09:50 Respiratory Rate 18 09/08/17 09:50 Blood Pressure 121/75 09/08/17 09:50 O2 Sat by Pulse Oximetry (%) Laboratory Last Values WBC 5.6 K/mm3 (4.0-10.0) 09/06/17 07:50 RBC 4.70 M/mm3 (4.00-5.60) 09/06/17 07:50 Hgb 15.1 GM/dL (11.7-16.9) 09/06/17 07:50 Hct 43.7 % (35.4-49) 09/06/17 07:50 MCV 93.1 fl (80-96) 09/06/17 07:50 MCH 32.2 pg (25.7-33.7) 09/06/17 07:50 MCHC 34.6 g/dl (32.0-35.9) 09/06/17 07:50 RDW 13.1 % (11.9-15.9) 09/06/17 07:50 Plt Count 171 K/MM3 (134-434) 09/06/17 07:50 MPV 8.5 fl (7.5-11.1) 09/06/17 07:50 Sodium 138 mmol/L (136-145) 09/06/17 07:50 Potassium 4.2 mmol/L (3.5-5.1) 09/06/17 07:50 Chloride 101 mmol/L (98-107) 09/06/17 07:50 Carbon Dioxide 31 mmol/L (21-32) 09/06/17 07:50 Anion Gap 6 (8-16) L 09/06/17 07:50 BUN 14 mg/dL (7-18) D 09/06/17 07:50 Creatinine 0.9 mg/dL (0.7-1.3) 09/06/17 07:50 Creat Clearance w eGFR > 60 (>60) 09/06/17 07:50 Random Glucose 83 mg/dL (74-106) 09/06/17 07:50 Calcium 8.6 mg/dL (8.5-10.1) 09/06/17 07:50 Total Bilirubin 0.6 mg/dL (0.2-1.0) 09/06/17 07:50 AST 14 U/L (15-37) L D 09/06/17 07:50 ALT 28 U/L (12-78) 09/06/17 07:50 Alkaline Phosphatase 53 U/L (45-117) 09/06/17 07:50 Total Protein 7.2 g/dl (6.4-8.2) 09/06/17 07:50 Albumin 3.7 g/dl (3.4-5.0) 09/06/17 07:50 Urine Color Yellow 09/05/17 21:22 Urine Appearance Turbid 09/05/17 21:22 Urine pH 5.0 (5.0-8.0) 09/05/17 21:22 Ur Specific [place] 1.031 (1.001-1.035) 09/05/17 21:22 Urine Protein Negative (NEGATIVE) 09/05/17 21:22 Urine Glucose (UA) Negative (NEGATIVE) 09/05/17 21:22 Urine Ketones Negative (NEGATIVE) 09/05/17 21:22 Urine Blood Negative (NEGATIVE) 09/05/17 21:22 Urine Nitrite Negative (NEGATIVE) 09/05/17 21:22 Urine Bilirubin Negative (NEGATIVE) 09/05/17 21:22 Urine Urobilinogen 2.0 mg/dL (0.2-1.0) 09/05/17 21:22 Ur Leukocyte Esterase Trace (NEGATIVE) 09/05/17 21:22 Urine WBC (Auto) 56 /hpf (3-5) 09/05/17 21:22 Urine RBC (Auto) None /hpf (0-3) 09/05/17 21:22 Urine Bacteria Moderate /hpf (NONE SEEN) 09/05/17 21:22 Urine Mucus Rare 09/05/17 21:22 Urine Yeast Many 09/05/17 21:22 RPR Titer Nonreactive (NONREACTIVE) 09/06/17 07:50 UA NOTED Assessment: 09/08/17 12:13 WITHDRAWAL SX Plan: CONTINUE DETOX INCREASE PO FLUIDS REPEAT UA TODAY
[2017-09-08] MEDS: ZOLPIDEM TARTRATE 5 MG TABLET PO PRN (22:07)
[2017-09-08] MEDS: THIAMINE HCL 100 MG TABLET (FP) PO SCH (22:07)
[2017-09-09] MEDS ORDERED: METHADONE HCL 10 MG TABLET (FOR DETOX USE ONLY) PO ONE (10:00)
[2017-09-09] MEDS: NICOTINE 21 MG/24 HOURS TOPICAL PATCH TD SCH (10:18)
[2017-09-09] MEDS: PRENATAL VITAMINS W/ FOLIC ACID TABLET (FP) PO SCH (10:18)
--- NOTE | 2017-09-09 12:58 | PN ---
BHS Progress Note (SOAP) Subjective: SLIGHT ANXIETY, SWEATS. Objective: 09/09/17 12:56 Vital Signs Temperature 97.3 F L 09/09/17 09:21 Pulse Rate 65 09/09/17 09:21 Respiratory Rate 18 09/09/17 09:21 Blood Pressure 110/73 09/09/17 09:21 O2 Sat by Pulse Oximetry (%) Laboratory Last Values WBC 5.6 K/mm3 (4.0-10.0) 09/06/17 07:50 RBC 4.70 M/mm3 (4.00-5.60) 09/06/17 07:50 Hgb 15.1 GM/dL (11.7-16.9) 09/06/17 07:50 Hct 43.7 % (35.4-49) 09/06/17 07:50 MCV 93.1 fl (80-96) 09/06/17 07:50 MCH 32.2 pg (25.7-33.7) 09/06/17 07:50 MCHC 34.6 g/dl (32.0-35.9) 09/06/17 07:50 RDW 13.1 % (11.9-15.9) 09/06/17 07:50 Plt Count 171 K/MM3 (134-434) 09/06/17 07:50 MPV 8.5 fl (7.5-11.1) 09/06/17 07:50 Sodium 138 mmol/L (136-145) 09/06/17 07:50 Potassium 4.2 mmol/L (3.5-5.1) 09/06/17 07:50 Chloride 101 mmol/L (98-107) 09/06/17 07:50 Carbon Dioxide 31 mmol/L (21-32) 09/06/17 07:50 Anion Gap 6 (8-16) L 09/06/17 07:50 BUN 14 mg/dL (7-18) D 09/06/17 07:50 Creatinine 0.9 mg/dL (0.7-1.3) 09/06/17 07:50 Creat Clearance w eGFR > 60 (>60) 09/06/17 07:50 Random Glucose 83 mg/dL (74-106) 09/06/17 07:50 Calcium 8.6 mg/dL (8.5-10.1) 09/06/17 07:50 Total Bilirubin 0.6 mg/dL (0.2-1.0) 09/06/17 07:50 AST 14 U/L (15-37) L D 09/06/17 07:50 ALT 28 U/L (12-78) 09/06/17 07:50 Alkaline Phosphatase 53 U/L (45-117) 09/06/17 07:50 Total Protein 7.2 g/dl (6.4-8.2) 09/06/17 07:50 Albumin 3.7 g/dl (3.4-5.0) 09/06/17 07:50 Urine Color Yellow 09/05/17 21:22 Urine Appearance Turbid 09/05/17 21:22 Urine pH 5.0 (5.0-8.0) 09/05/17 21:22 Ur Specific [place] 1.031 (1.001-1.035) 09/05/17 21:22 Urine Protein Negative (NEGATIVE) 09/05/17 21:22 Urine Glucose (UA) Negative (NEGATIVE) 09/05/17 21:22 Urine Ketones Negative (NEGATIVE) 09/05/17 21:22 Urine Blood Negative (NEGATIVE) 09/05/17 21:22 Urine Nitrite Negative (NEGATIVE) 09/05/17 21:22 Urine Bilirubin Negative (NEGATIVE) 09/05/17 21:22 Urine Urobilinogen 2.0 mg/dL (0.2-1.0) 09/05/17 21:22 Ur Leukocyte Esterase Trace (NEGATIVE) 09/05/17 21:22 Urine WBC (Auto) 56 /hpf (3-5) 09/05/17 21:22 Urine RBC (Auto) None /hpf (0-3) 09/05/17 21:22 Urine Bacteria Moderate /hpf (NONE SEEN) 09/05/17 21:22 Urine Mucus Rare 09/05/17 21:22 Urine Yeast Many 09/05/17 21:22 RPR Titer Nonreactive (NONREACTIVE) 09/06/17 07:50 REPEAT UA ORDERED AND RESULT PENDING. ASYMPTOMATIC. Assessment: 09/09/17 12:57 WITHDRAWAL SX Plan: CONTINUE DETOX
[2017-09-09] MEDS ORDERED: ZOLPIDEM TARTRATE 10 MG TABLET (PARK CARE ONLY) PO PRN (20:49)
[2017-09-09] MEDS: THIAMINE HCL 100 MG TABLET (FP) PO SCH (22:08)
[2017-09-10] MEDS ORDERED: METHADONE HCL 5 MG TABLET (FOR DETOX USE ONLY) PO ONE (06:00)
[2017-09-10 09:09] VITALS: BP 107/64; PULSE 87; TEMP 97.1
--- NOTE | 2017-09-10 10:31 | DS ---
[facility] Detox Discharge Summary Admission Date: 09/05/17 Discharge Date: 09/10/17 - History Present History: Opioid Dependence Additional Comments: DETOX COMPLETED. D/C'D TODAY TO [facility]. Pertinent Past History: SEE DX BELOW - Physical Exam Results Vital Signs: Vital Signs Temperature 97.1 F L 09/10/17 09:09 Pulse Rate 87 09/10/17 09:09 Respiratory Rate 18 09/10/17 09:09 Blood Pressure 107/64 09/10/17 09:09 O2 Sat by Pulse Oximetry (%) Pertinent Admission Physical Exam Findings: WITHDRAWAL SX Laboratory Last Values WBC 5.6 K/mm3 (4.0-10.0) 09/06/17 07:50 RBC 4.70 M/mm3 (4.00-5.60) 09/06/17 07:50 Hgb 15.1 GM/dL (11.7-16.9) 09/06/17 07:50 Hct 43.7 % (35.4-49) 09/06/17 07:50 MCV 93.1 fl (80-96) 09/06/17 07:50 MCH 32.2 pg (25.7-33.7) 09/06/17 07:50 MCHC 34.6 g/dl (32.0-35.9) 09/06/17 07:50 RDW 13.1 % (11.9-15.9) 09/06/17 07:50 Plt Count 171 K/MM3 (134-434) 09/06/17 07:50 MPV 8.5 fl (7.5-11.1) 09/06/17 07:50 Sodium 138 mmol/L (136-145) 09/06/17 07:50 Potassium 4.2 mmol/L (3.5-5.1) 09/06/17 07:50 Chloride 101 mmol/L (98-107) 09/06/17 07:50 Carbon Dioxide 31 mmol/L (21-32) 09/06/17 07:50 Anion Gap 6 (8-16) L 09/06/17 07:50 BUN 14 mg/dL (7-18) D 09/06/17 07:50 Creatinine 0.9 mg/dL (0.7-1.3) 09/06/17 07:50 Creat Clearance w eGFR > 60 (>60) 09/06/17 07:50 Random Glucose 83 mg/dL (74-106) 09/06/17 07:50 Calcium 8.6 mg/dL (8.5-10.1) 09/06/17 07:50 Total Bilirubin 0.6 mg/dL (0.2-1.0) 09/06/17 07:50 AST 14 U/L (15-37) L D 09/06/17 07:50 ALT 28 U/L (12-78) 09/06/17 07:50 Alkaline Phosphatase 53 U/L (45-117) 09/06/17 07:50 Total Protein 7.2 g/dl (6.4-8.2) 09/06/17 07:50 Albumin 3.7 g/dl (3.4-5.0) 09/06/17 07:50 Urine Color Yellow 09/05/17 21:22 Urine Appearance Turbid 09/05/17 21:22 Urine pH 5.0 (5.0-8.0) 09/05/17 21:22 Ur Specific [place] 1.031 (1.001-1.035) 09/05/17 21:22 Urine Protein Negative (NEGATIVE) 09/05/17 21:22 Urine Glucose (UA) Negative (NEGATIVE) 09/05/17 21:22 Urine Ketones Negative (NEGATIVE) 09/05/17 21:22 Urine Blood Negative (NEGATIVE) 09/05/17 21:22 Urine Nitrite Negative (NEGATIVE) 09/05/17 21:22 Urine Bilirubin Negative (NEGATIVE) 09/05/17 21:22 Urine Urobilinogen 2.0 mg/dL (0.2-1.0) 09/05/17 21:22 Ur Leukocyte Esterase Trace (NEGATIVE) 09/05/17 21:22 Urine WBC (Auto) 56 /hpf (3-5) 09/05/17 21:22 Urine RBC (Auto) None /hpf (0-3) 09/05/17 21:22 Urine Bacteria Moderate /hpf (NONE SEEN) 09/05/17 21:22 Urine Mucus Rare 09/05/17 21:22 Urine Yeast Many 09/05/17 21:22 RPR Titer Nonreactive (NONREACTIVE) 09/06/17 07:50 REPEAT UA RESULT PENDING - Treatment Hospital Course: Detox Protocol Followed, Detoxed Safely, Responded well, Discharged Condition Good, Rehab Referral Accepted Patient has Accepted a Rehab Referral to: [facility] - Medication Discharge Medications: Ambulatory Orders NK [No Known Home Medication] 01/27/17 - Diagnosis (1) Opioid dependence with withdrawal Status: Acute (2) Nicotine dependence Status: Acute Qualifiers: Nicotine product type: cigarettes Substance use status: in withdrawal Qualified Code(s): F17.213 - Nicotine dependence, cigarettes, with withdrawal - AMA Did Patient Leave Against Medical Advice: No
== END 2017-09-10 09:52 | disposition home or self-care (01) | DRG 897 ==
LOC: YASAS 13:14 → Y3N 18:30
PROVIDERS: ADMIT Internal Medicine; ATTEND Internal Medicine
PROC: HZ2ZZZZ Detoxification Services for Substance Abuse Treatment (ICD-10-PCS; principal; 2017-09-05)
DX: F11.23 Opioid dependence with withdrawal (principal); F17.213 Nicotine dependence, cigarettes, with withdrawal; F32.9 Major depressive disorder, single episode, unspecified; G47.00 Insomnia, unspecified; Z59.0 Homelessness
CPT/HCPCS: 36415; 80053; 81003; 81015; 85027; 86593; 93005; 93010

== ENCOUNTER 2017-11-29 11:40 | Inpatient (IN) | payer OTHER ==
[2017-11-29 15:04] VITALS: BMI 29.4
--- NOTE | 2017-11-29 17:48 | HP ---
COWS - Scale Resting Pulse: 1= [place] 81-100 Sweatin=Flushed/Facial Moisture Restless Observation: 3= Extraneous Movement Pupil Size: 2= Moderately Dilated Bone or Joint Aches: 2= Severe Diffuse Aches Runny Nose/ Eye Tearin= Runny Nose/Eyes GI Upset > 30mins: 3= Vomiting/Diarrhea Tremor Observation: 2= Slight Tremor Visible Yawning Observation: 2= >3x During Session Anxiety or Irritability: 2=Irritable/Anxious Goose Flesh Skin: 0=Smooth Skin COWS Score: 21 Admission ROS S - HPI Chief Complaint: i need help to stop using heroin Allergies/Adverse Reactions: Allergies Allergy/AdvReac Type Severity Reaction Status Date / Time No Known Drug Allergies Allergy Unknown Verified 11/29/17 17:10 NKDA Allergy Uncoded 11/29/17 17:10 History of Present Illness: this 27 years old male with heroin dependence,seeking detox,withdrawal symptom, last detox 09/05/17 to 09/10/17 denied medical problem anxiety,depression,insomnia no significant period of sobriety - Ebola screening Have you traveled outside of the country in the last 21 days: No Have you been sick,other than usual withdrawal symptoms: No - Review of Systems Constitutional: Chills, Loss of Appetite, Malaise, Night Sweats, Changes in sleep, Weakness EENT: reports: Tearing, Nose Congestion Respiratory: reports: No Symptoms reported Cardiac: reports: No Symptoms Reported GI: reports: Diarrhea, Nausea, Vomiting, Abdominal cramping : reports: No Symptoms Reported Musculoskeletal: reports: Back Pain, Joint Pain, Muscle Pain, Joint Stiffness Integumentary: reports: Dryness Neuro: reports: Headache, Tremors Endocrine: reports: No Symptoms Reported Hematology: reports: No Symptoms Reported Psychiatric: reports: No Sypmtoms Reported, Judgement Intact, Mood/Affect Appropiate, Orientated x3 (insomnia), Anxious, Depressed Patient History - Patient Medical History Hx Anemia: No Hx Asthma: No Hx Chronic Obstructive Pulmonary Disease (COPD): No Hx Cancer: No Hx Cardiac Disorders: No Hx Congestive Heart Failure: No Hx Hypertension: No Hx Hypercholesterolemia: No Hx Pacemaker: No HX Cerebrovascular Accident: No Hx Seizures: No Hx Dementia: No Hx Diabetes: No Hx Gastrointestinal Disorders: No Hx Liver Disease: No Hx Genitourinary Disorders: No Hx Sexually Transmitted Disorders: No Hx Renal Disease (ESRD): No Hx Thyroid Disease: No Hx Human Immunodeficiency Virus (HIV): No (09/21 negative) Hx Hepatitis C: No Hx Depression: No Hx Suicide Attempt: No Hx Schizophrenia: No Other Medical History: no si=uicidal,no hpmicidal - Patient Surgical History Past Surgical History: No Hx Neurologic Surgery: No Hx Cataract Extraction: No Hx Cardiac Surgery: No Hx Lung Surgery: No Hx Breast Surgery: No Hx Breast Biopsy: No Hx Abdominal Surgery: No Hx Appendectomy: No Hx Cholecystectomy: No Hx Genitourinary Surgery: No Hx Section: No Hx Orthopedic Surgery: No Anesthesia Reaction: No - PPD History Previous Implant?: Yes Documented Results: Negative w/proof Implanted On Prior [facility] Admission?: Yes Date: 01/29/17 Results: 0 mm PPD to be Administered?: No - Smoking Cessation Smoking history: Current every day smoker Have you smoked in the past 12 months: Yes Aproximately how many cigarettes per day: 20 Cigars Per Day: 0 Hx Chewing Tobacco Use: No Initiated information on smoking cessation: Yes 'Breaking Loose' booklet given: 11/29/17 - Substance & Tx. History Hx Alcohol Use: No Hx Substance Use: Yes Substance Use Type: Heroin Hx Substance Use Treatment: Yes ([facility] 09/05/17 to 09/10/17) - Substances Abused Heroin Route: Injection Frequency: Daily Amount used: 4-5 BAGS DAILY Age of first use: 22 Date of Last Use: 11/28/17 Family Disease History - Family Disease History Family History: Denies Admission Physical Exam S - Vital Signs Vital Signs: Vital Signs - 24 hr 11/29/17 15:02 Temperature 98.6 F Pulse Rate 86 Respiratory 18 Rate Blood Pressure 119/82 - Physical General Appearance: Yes: Moderate Distress, Tremorous, Irritable, Sweating, Anxious HEENTM: Yes: Normal ENT Inspection, KASH, Pharynx Normal Respiratory: Yes: Within Normal Limits, Lungs Clear, Normal Breath Sounds, No Respiratory Distress Neck: Yes: Within Normal Limits, Supple, Trachea in good position Breast: Yes: Within Normal Limits Cardiology: Yes: Within Normal Limits, Regular Rhythm, Regular Rate, S1, S2 Abdominal: Yes: Within Normal Limits, Normal Bowel Sounds, Non Tender, Flat, Soft Genitourinary: Yes: Within Normal Limits Back: Yes: Within Normal Limits, Normal Inspection, Muscle Spasm Musculoskeletal: Yes: full range of Motion, Back pain, Muscle Pain Extremities: Yes: Normal Range of Motion, Non-Tender, Tremors Neurological: Yes: film recordist II-XII NML intact, Fully Oriented, Alert, Motor Strength 5/5 Integumentary: Yes: Dry Lymphatic: Yes: Within Normal Limits - Diagnostic (1) Opioid dependence with withdrawal Current Visit: No Status: Acute (2) Nicotine dependence Current Visit: No Status: Chronic Qualifiers: Nicotine product type: cigarettes Substance use status: in withdrawal Qualified Code(s): F17.213 - Nicotine dependence, cigarettes, with withdrawal (3) Insomnia Current Visit: No Status: Chronic (4) Weight loss Current Visit: Yes Status: Acute Cleared for Admission [facility] - Detox or Rehab [facility] Level of Care: Medically Managed Detox Regimen/Protocol: Methadone [facility] Breath Alcohol Content Breath Alcohol Content: 0 Urine Drug Screen - Results Drug Screen Negative: No Urine Drug Screen Results: OPI-Opiates
[2017-11-29] MEDS ORDERED: MENTHOL/PHENOL 1 EACH UD MM PRN (18:00)
[2017-11-29] MEDS ORDERED: LOPERAMIDE HCL 2 MG CAPSULE PO PRN (18:00)
[2017-11-29] MEDS ORDERED: P-EPHED 60MG/TRIPROLIDI 2.5MG TABLET PO PRN (18:00)
[2017-11-29] MEDS ORDERED: METHADONE HCL 10 MG TABLET (FOR DETOX USE ONLY) PO ONE ×2 (18:00→23:00)
[2017-11-29] MEDS ORDERED: MAG HYDROX/AL HYDROX/SIMETH 30 ML UNIT-DOSE CUP PO PRN (18:00)
[2017-11-29] MEDS ORDERED: MAGNESIUM CITRATE 300 ML BOTTLE PO PRN (18:00)
[2017-11-29] MEDS ORDERED: ACETAMINOPHEN 325 MG TABLET (FP) PO PRN (18:00)
[2017-11-29] MEDS ORDERED: IBUPROFEN 400 MG TABLET (FP) PO PRN (18:00)
[2017-11-29] MEDS ORDERED: guaiFENesin/D-METHORPHAN HB 10 ML UNIT-DOSE CUPS PO PRN (18:00)
[2017-11-29] MEDS ORDERED: MAGNESIUM HYDROX 2400MG/30ML ORAL SUSPENSION 30 ML CUP PO PRN (18:00)
[2017-11-29] MEDS: diazePAM 5 MG TABLET PO PRN (18:40)
[2017-11-29] MEDS ORDERED: MELATONIN 5 MG TABLETS PO PRN (22:00)
[2017-11-29 22:36] LABS: URINE APPEARANCE CLEAR; URINE BILIRUBIN NEGATIVE (<2.0 mg/dL); URINE COLOR YELLOW; URINE GLUCOSE (UA) NEGATIVE (NEGATIVE); URINE KETONE NEGATIVE (NEGATIVE); URINE LEUK ESTERASE NEGATIVE (NEGATIVE); URINE NITRITE NEGATIVE (NEGATIVE); URINE UROBILINOGEN 4.0 E.U/dl mg/dL (0.2-1.0)
[2017-11-29 22:39] LABS: URINE PROTEIN 1+ (NEGATIVE)
[2017-11-29 22:42] LABS: EPI CELLS RARE /HPF (FEW); URINE MUCUS RARE
[2017-11-29] MEDS: THIAMINE HCL 100 MG TABLET (FP) PO SCH (22:54)
[2017-11-30 09:24] LABS: HEMATOCRIT 43.2 % (35.4-49); HEMOGLOBIN 14.8 GM/dL (11.7-16.9); MCH 31.9 pg (25.7-33.7); MCHC 34.3 g/dl (32.0-35.9); MEAN CELL VOLUME 93.1 fl (80-96); MEAN PLT VOLUME 8.6 fl (7.5-11.1); PLATELET COUNT 149 K/MM3 (134-434); RBC 4.64 M/mm3 (4.00-5.60); WHITE BLOOD COUNT 7.3 K/mm3 (4.0-10.0)
[2017-11-30 09:37] LABS: ALBUMIN 3.4 g/dl (3.4-5.0); ANION GAP 5 (8-16); BLOOD UREA NITROGEN 14 mg/dL (7-18); CALCIUM 8.4 mg/dL (8.5-10.1); CHLORIDE 104 mmol/L (98-107); CO2 30 mmol/L (21-32); CREATININE 1.1 mg/dL (0.7-1.3); GLUCOSE,RANDOM 83 mg/dL (74-106); SGOT/AST 16 U/L (15-37); SGPT/ALT 23 U/L (12-78); SODIUM 139 mmol/L (136-145)
[2017-11-30 09:39] LABS: ALK PHOS 44 U/L (45-117); BILIRUBIN,TOTAL 0.8 mg/dL (0.2-1.0); TOT PROT 6.8 g/dl (6.4-8.2)
[2017-11-30] MEDS ORDERED: METHADONE HCL 10 MG TABLET (FOR DETOX USE ONLY) PO ONE (10:00)
--- NOTE | 2017-11-30 10:05 | EKG ---
Test Reason : Blood Pressure : / mmHG Vent. Rate : 093 BPM Atrial Rate : 093 BPM P-R Int : 128 ms QRS Dur : 094 ms QT Int : 350 ms P-R-T Axes : 032 060 032 degrees QTc Int : 435 ms NORMAL SINUS RHYTHM NORMAL ECG WHEN COMPARED WITH ECG OF 05-SEP-2017 20:38, NO SIGNIFICANT CHANGE WAS FOUND Confirmed by MOSHE DE LA GARZA MD ([id number]) on 11/30/2017 10:05:47 AM Referred By: Darcy Toribio Confirmed By:MOSHE DE LA GARZA MD
[2017-11-30] MEDS: PRENATAL VITAMINS W/ FOLIC ACID TABLET (FP) PO SCH (10:49)
[2017-11-30] MEDS: diazePAM 5 MG TABLET PO PRN ×2 (10:50→22:24)
--- NOTE | 2017-11-30 11:35 | CONSULT ---
[facility] Psychiatric Consult - Data Date of interview: 11/30/17 Identifying data: Mr James is a 27 years old single male, unemployed with no source of income seeking detox treatment for opioid Substance Abuse History: Reports history of heroin use. Refer to addiction counselor's summary for further information Medical History: Unremarkable. Smokes cigarettes 1 ppd Psychiatric History: Denies history of previous psychiatric treatment. However reports feeling depressed and sleeping poorly at present Physical/Sexual Abuse/Trauma History: Denies history of emotional, physical or sexual abuse as well as DV relationship Additional Comment: Denies criminal history Mental Status Exam - Mental Status Exam Alert and Oriented to: Time, Place, Person Cognitive Function: Fair Patient Appearance: Well Groomed Mood: Depressed Affect: Appropriate Patient Behavior: Cooperative Speech Pattern: Clear Voice Loudness: Normal Thought Process: Intact, Goal Oriented Thought Disorder: Not Present Hallucinations: Denies Suicidal Ideation: Denies Insight/Judgement: Fair Sleep: Poorly Appetite: Good Muscle strength/Tone: Normal Gait/Station: Normal Psychiatric Findings - Problem List ([place] 1, 2,3) (1) Substance induced mood disorder Current Visit: Yes Status: Acute (2) Substance-induced sleep disorder Current Visit: Yes Status: Acute (3) Opioid dependence with withdrawal Current Visit: No Status: Acute (4) Nicotine dependence Current Visit: No Status: Chronic Qualifiers: Nicotine product type: cigarettes Substance use status: in withdrawal Qualified Code(s): F17.213 - Nicotine dependence, cigarettes, with withdrawal - Initial Treatment Plan Initial Treatment Plan: 1) Start Ambien 5 mg po HS prn for insomnia. 2) Continue inpatient detoxification
--- NOTE | 2017-11-30 13:18 | PN ---
S COWS - Scale Resting Pulse: 0= [place] 80 or Below Sweatin= Chills/Flushing Restless Observation: 3= Extraneous Movement Pupil Size: 1= Pupils >than Normal Bone or Joint Aches: 2= Severe Diffuse Aches Runny Nose/ Eye Tearin= Runny Nose/Eyes GI Upset > 30mins: 2= Nausea/Diarrhea Tremor Observation of Outstretched Hands: 2= Slight Tremor Visible Yawning Observation: 1= 1-2x During Session Anxiety or Irritability: 2=Irritable/Anxious Goose Flesh Skin: 0=Smooth Skin COWS Score: 16 S Progress Note (SOAP) Subjective: alert,irritable,anxious,interrupted sleep,tremor,pain in the body and back Objective: 11/30/17 13:16 Vital Signs Temperature 98.1 F 11/30/17 09:12 Pulse Rate 73 11/30/17 09:12 Respiratory Rate 19 11/30/17 09:12 Blood Pressure 108/60 11/30/17 09:12 O2 Sat by Pulse Oximetry (%) ekg nsr,normal ecg qt 350/435 no chest pain,no sob,no dizziness Laboratory Last Values WBC 7.3 K/mm3 (4.0-10.0) D 11/30/17 07:45 RBC 4.64 M/mm3 (4.00-5.60) 11/30/17 07:45 Hgb 14.8 GM/dL (11.7-16.9) 11/30/17 07:45 Hct 43.2 % (35.4-49) 11/30/17 07:45 MCV 93.1 fl (80-96) 11/30/17 07:45 MCH 31.9 pg (25.7-33.7) 11/30/17 07:45 MCHC 34.3 g/dl (32.0-35.9) 11/30/17 07:45 RDW 14.0 % (11.9-15.9) 11/30/17 07:45 Plt Count 149 K/MM3 (134-434) 11/30/17 07:45 MPV 8.6 fl (7.5-11.1) 11/30/17 07:45 Sodium 139 mmol/L (136-145) 11/30/17 07:45 Potassium 4.0 mmol/L (3.5-5.1) 11/30/17 07:45 Chloride 104 mmol/L (98-107) 11/30/17 07:45 Carbon Dioxide 30 mmol/L (21-32) 11/30/17 07:45 Anion Gap 5 (8-16) L 11/30/17 07:45 BUN 14 mg/dL (7-18) 11/30/17 07:45 Creatinine 1.1 mg/dL (0.7-1.3) D 11/30/17 07:45 Creat Clearance w eGFR > 60 (>60) 11/30/17 07:45 Random Glucose 83 mg/dL (74-106) 11/30/17 07:45 Calcium 8.4 mg/dL (8.5-10.1) L 11/30/17 07:45 Total Bilirubin 0.8 mg/dL (0.2-1.0) D 11/30/17 07:45 AST 16 U/L (15-37) 11/30/17 07:45 ALT 23 U/L (12-78) 11/30/17 07:45 Alkaline Phosphatase 44 U/L (45-117) L 11/30/17 07:45 Total Protein 6.8 g/dl (6.4-8.2) 11/30/17 07:45 Albumin 3.4 g/dl (3.4-5.0) 11/30/17 07:45 Urine Color Yellow 11/29/17 22:20 Urine Appearance Clear 11/29/17 22:20 Urine pH 7.0 (5.0-8.0) D 11/29/17 22:20 Ur Specific [place] 1.029 (1.001-1.035) 11/29/17 22:20 Urine Protein 1+ (NEGATIVE) H 11/29/17 22:20 Urine Glucose (UA) Negative (NEGATIVE) 11/29/17 22:20 Urine Ketones Negative (NEGATIVE) 11/29/17 22:20 Urine Blood Negative (NEGATIVE) 11/29/17 22:20 Urine Nitrite Negative (NEGATIVE) 11/29/17 22:20 Urine Bilirubin Negative (<2.0 mg/dL) 11/29/17 22:20 Urine Urobilinogen 4.0 e.u/dl mg/dL (0.2-1.0) 11/29/17 22:20 Ur Leukocyte Esterase Negative (NEGATIVE) 11/29/17 22:20 Urine WBC (Auto) <1 /hpf (3-5) 11/29/17 22:20 Urine RBC (Auto) 4 /hpf (0-3) 11/29/17 22:20 Ur Epithelial Cells Rare /HPF (FEW) 11/29/17 22:20 Urine Mucus Rare 11/29/17 22:20 RPR Titer Nonreactive (NONREACTIVE) 11/30/17 07:45 Assessment: 11/30/17 13:18 withdrawal symptom Plan: continue detox
[2017-11-30] MEDS: THIAMINE HCL 100 MG TABLET (FP) PO SCH (22:22)
[2017-11-30] MEDS: ZOLPIDEM TARTRATE 5 MG TABLET PO PRN (22:23)
[2017-12-01] MEDS ORDERED: METHADONE HCL 5 MG TABLET (FOR DETOX USE ONLY) PO ONE (10:00)
[2017-12-01] MEDS: diazePAM 5 MG TABLET PO PRN ×3 (10:41→22:34)
[2017-12-01] MEDS: PRENATAL VITAMINS W/ FOLIC ACID TABLET (FP) PO SCH (10:41)
--- NOTE | 2017-12-01 12:53 | PN ---
[facility] COWS - Scale Resting Pulse: 1= OK 81-100 Sweatin= Chills/Flushing Restless Observation: 3= Extraneous Movement Pupil Size: 1= Pupils >than Normal Bone or Joint Aches: 2= Severe Diffuse Aches Runny Nose/ Eye Tearin= Runny Nose/Eyes GI Upset > 30mins: 2= Nausea/Diarrhea Tremor Observation of Outstretched Hands: 2= Slight Tremor Visible Yawning Observation: 1= 1-2x During Session Anxiety or Irritability: 2=Irritable/Anxious Goose Flesh Skin: 0=Smooth Skin COWS Score: 17 S Progress Note (SOAP) Subjective: ALERT,IRRITABLE,ANXIOUS,INTERRUPTED SLEEP,PAIN IN THE BODY AND BACK,TREMOR Objective: 12/01/17 12:52 Vital Signs Temperature 98.1 F 12/01/17 09:25 Pulse Rate 81 12/01/17 09:25 Respiratory Rate 20 12/01/17 09:25 Blood Pressure 117/61 12/01/17 09:25 O2 Sat by Pulse Oximetry (%) Laboratory Last Values WBC 7.3 K/mm3 (4.0-10.0) D 11/30/17 07:45 RBC 4.64 M/mm3 (4.00-5.60) 11/30/17 07:45 Hgb 14.8 GM/dL (11.7-16.9) 11/30/17 07:45 Hct 43.2 % (35.4-49) 11/30/17 07:45 MCV 93.1 fl (80-96) 11/30/17 07:45 MCH 31.9 pg (25.7-33.7) 11/30/17 07:45 MCHC 34.3 g/dl (32.0-35.9) 11/30/17 07:45 RDW 14.0 % (11.9-15.9) 11/30/17 07:45 Plt Count 149 K/MM3 (134-434) 11/30/17 07:45 MPV 8.6 fl (7.5-11.1) 11/30/17 07:45 Sodium 139 mmol/L (136-145) 11/30/17 07:45 Potassium 4.0 mmol/L (3.5-5.1) 11/30/17 07:45 Chloride 104 mmol/L (98-107) 11/30/17 07:45 Carbon Dioxide 30 mmol/L (21-32) 11/30/17 07:45 Anion Gap 5 (8-16) L 11/30/17 07:45 BUN 14 mg/dL (7-18) 11/30/17 07:45 Creatinine 1.1 mg/dL (0.7-1.3) D 11/30/17 07:45 Creat Clearance w eGFR > 60 (>60) 11/30/17 07:45 Random Glucose 83 mg/dL (74-106) 11/30/17 07:45 Calcium 8.4 mg/dL (8.5-10.1) L 11/30/17 07:45 Total Bilirubin 0.8 mg/dL (0.2-1.0) D 11/30/17 07:45 AST 16 U/L (15-37) 11/30/17 07:45 ALT 23 U/L (12-78) 11/30/17 07:45 Alkaline Phosphatase 44 U/L (45-117) L 11/30/17 07:45 Total Protein 6.8 g/dl (6.4-8.2) 11/30/17 07:45 Albumin 3.4 g/dl (3.4-5.0) 11/30/17 07:45 Urine Color Yellow 11/29/17 22:20 Urine Appearance Clear 11/29/17 22:20 Urine pH 7.0 (5.0-8.0) D 11/29/17 22:20 Ur Specific [place] 1.029 (1.001-1.035) 11/29/17 22:20 Urine Protein 1+ (NEGATIVE) H 11/29/17 22:20 Urine Glucose (UA) Negative (NEGATIVE) 11/29/17 22:20 Urine Ketones Negative (NEGATIVE) 11/29/17 22:20 Urine Blood Negative (NEGATIVE) 11/29/17 22:20 Urine Nitrite Negative (NEGATIVE) 11/29/17 22:20 Urine Bilirubin Negative (<2.0 mg/dL) 11/29/17 22:20 Urine Urobilinogen 4.0 e.u/dl mg/dL (0.2-1.0) 11/29/17 22:20 Ur Leukocyte Esterase Negative (NEGATIVE) 11/29/17 22:20 Urine WBC (Auto) <1 /hpf (3-5) 11/29/17 22:20 Urine RBC (Auto) 4 /hpf (0-3) 11/29/17 22:20 Ur Epithelial Cells Rare /HPF (FEW) 11/29/17 22:20 Urine Mucus Rare 11/29/17 22:20 RPR Titer Nonreactive (NONREACTIVE) 11/30/17 07:45 Assessment: 12/01/17 12:53 WITHDRAWAL SYMPTOM Plan: CONTINUE DETOX
[2017-12-01] MEDS: hydrOXYzine PAMOATE 50 MG CAPSULE (FP) PO PRN (13:32)
[2017-12-01] MEDS: ZOLPIDEM TARTRATE 5 MG TABLET PO PRN (22:32)
[2017-12-01] MEDS: THIAMINE HCL 100 MG TABLET (FP) PO SCH (22:32)
[2017-12-02] MEDS ORDERED: METHADONE HCL 5 MG TABLET (FOR DETOX USE ONLY) PO ONE (10:00)
[2017-12-02] MEDS: diazePAM 5 MG TABLET PO PRN (10:22)
[2017-12-02] MEDS: PRENATAL VITAMINS W/ FOLIC ACID TABLET (FP) PO SCH (10:22)
--- NOTE | 2017-12-02 12:09 | PN ---
[facility] Progress Note (SOAP) Subjective: ALERT,IRRITABLE,ANXIOUS,INTERRUPTED SLEEP Objective: 12/02/17 12:06 Vital Signs Temperature 97.9 F 12/02/17 10:35 Pulse Rate 88 12/02/17 10:35 Respiratory Rate 18 12/02/17 10:35 Blood Pressure 124/72 12/02/17 10:35 O2 Sat by Pulse Oximetry (%) Assessment: 12/02/17 12:08 WITHDRAWAL SYMPTOM Plan: CONTINUE DETOX
[2017-12-02] MEDS: THIAMINE HCL 100 MG TABLET (FP) PO SCH (22:23)
[2017-12-02] MEDS: ZOLPIDEM TARTRATE 5 MG TABLET PO PRN (22:23)
[2017-12-03] MEDS ORDERED: METHADONE HCL 10 MG TABLET (FOR DETOX USE ONLY) PO ONE (10:00)
[2017-12-03] MEDS: PRENATAL VITAMINS W/ FOLIC ACID TABLET (FP) PO SCH (10:31)
[2017-12-03] MEDS: hydrOXYzine PAMOATE 50 MG CAPSULE (FP) PO PRN ×2 (10:33→22:26)
--- NOTE | 2017-12-03 11:05 | PN ---
S Progress Note (SOAP) Subjective: ALERT,IRRITABLE,ANXIOUS,INTERRUPTED SLEEP Objective: 12/03/17 11:04 Vital Signs Temperature 97.8 F 12/03/17 09:54 Pulse Rate 80 12/03/17 09:54 Respiratory Rate 18 12/03/17 09:54 Blood Pressure 115/61 12/03/17 09:54 O2 Sat by Pulse Oximetry (%) Assessment: 12/03/17 11:04 WITHDRAWAL SYMPTOM Plan: CONTINUE DETOX,DISCHARGE IN AM
[2017-12-03] MEDS: ZOLPIDEM TARTRATE 5 MG TABLET PO PRN (22:25)
[2017-12-03] MEDS: THIAMINE HCL 100 MG TABLET (FP) PO SCH (22:27)
[2017-12-04] MEDS: hydrOXYzine PAMOATE 50 MG CAPSULE (FP) PO PRN (05:35)
[2017-12-04] MEDS ORDERED: METHADONE HCL 5 MG TABLET (FOR DETOX USE ONLY) PO ONE (06:00)
--- NOTE | 2017-12-04 08:50 | PN ---
S Progress Note (SOAP) Subjective: alert,no complaint Objective: 12/04/17 08:48 Vital Signs Temperature 97.2 F L 12/04/17 07:30 Pulse Rate 75 12/04/17 07:30 Respiratory Rate 18 12/04/17 07:30 Blood Pressure 110/58 12/04/17 07:30 O2 Sat by Pulse Oximetry (%) Assessment: 12/04/17 08:49 detox completed,no withdrawal symptom Plan: discharge today,follow up with after care program as arrangement
--- NOTE | 2017-12-04 08:56 | DS ---
[facility] Detox Discharge Summary Admission Date: 11/29/17 Discharge Date: 12/04/17 - History Present History: Alcohol Dependence, Opioid Dependence Additional Comments: follow up with after care program as arrangement Pertinent Past History: hepatitis c weight loss nicotine dependence sle hypercholesterolemia - Physical Exam Results Vital Signs: Vital Signs Temperature 97.2 F L 12/04/17 07:30 Pulse Rate 75 12/04/17 07:30 Respiratory Rate 18 12/04/17 07:30 Blood Pressure 110/58 12/04/17 07:30 O2 Sat by Pulse Oximetry (%) Pertinent Admission Physical Exam Findings: withdrawal signs and symptom Vital Signs Temperature 97.2 F L 12/04/17 07:30 Pulse Rate 75 12/04/17 07:30 Respiratory Rate 18 12/04/17 07:30 Blood Pressure 110/58 12/04/17 07:30 O2 Sat by Pulse Oximetry (%) Laboratory Last Values WBC 7.3 K/mm3 (4.0-10.0) D 11/30/17 07:45 RBC 4.64 M/mm3 (4.00-5.60) 11/30/17 07:45 Hgb 14.8 GM/dL (11.7-16.9) 11/30/17 07:45 Hct 43.2 % (35.4-49) 11/30/17 07:45 MCV 93.1 fl (80-96) 11/30/17 07:45 MCH 31.9 pg (25.7-33.7) 11/30/17 07:45 MCHC 34.3 g/dl (32.0-35.9) 11/30/17 07:45 RDW 14.0 % (11.9-15.9) 11/30/17 07:45 Plt Count 149 K/MM3 (134-434) 11/30/17 07:45 MPV 8.6 fl (7.5-11.1) 11/30/17 07:45 Sodium 139 mmol/L (136-145) 11/30/17 07:45 Potassium 4.0 mmol/L (3.5-5.1) 11/30/17 07:45 Chloride 104 mmol/L (98-107) 11/30/17 07:45 Carbon Dioxide 30 mmol/L (21-32) 11/30/17 07:45 Anion Gap 5 (8-16) L 11/30/17 07:45 BUN 14 mg/dL (7-18) 11/30/17 07:45 Creatinine 1.1 mg/dL (0.7-1.3) D 11/30/17 07:45 Creat Clearance w eGFR > 60 (>60) 11/30/17 07:45 Random Glucose 83 mg/dL (74-106) 11/30/17 07:45 Calcium 8.4 mg/dL (8.5-10.1) L 11/30/17 07:45 Total Bilirubin 0.8 mg/dL (0.2-1.0) D 11/30/17 07:45 AST 16 U/L (15-37) 11/30/17 07:45 ALT 23 U/L (12-78) 11/30/17 07:45 Alkaline Phosphatase 44 U/L (45-117) L 11/30/17 07:45 Total Protein 6.8 g/dl (6.4-8.2) 11/30/17 07:45 Albumin 3.4 g/dl (3.4-5.0) 11/30/17 07:45 Urine Color Yellow 11/29/17 22:20 Urine Appearance Clear 11/29/17 22:20 Urine pH 7.0 (5.0-8.0) D 11/29/17 22:20 Ur Specific [place] 1.029 (1.001-1.035) 11/29/17 22:20 Urine Protein 1+ (NEGATIVE) H 11/29/17 22:20 Urine Glucose (UA) Negative (NEGATIVE) 11/29/17 22:20 Urine Ketones Negative (NEGATIVE) 11/29/17 22:20 Urine Blood Negative (NEGATIVE) 11/29/17 22:20 Urine Nitrite Negative (NEGATIVE) 11/29/17 22:20 Urine Bilirubin Negative (<2.0 mg/dL) 11/29/17 22:20 Urine Urobilinogen 4.0 e.u/dl mg/dL (0.2-1.0) 11/29/17 22:20 Ur Leukocyte Esterase Negative (NEGATIVE) 11/29/17 22:20 Urine WBC (Auto) <1 /hpf (3-5) 11/29/17 22:20 Urine RBC (Auto) 4 /hpf (0-3) 11/29/17 22:20 Ur Epithelial Cells Rare /HPF (FEW) 11/29/17 22:20 Urine Mucus Rare 11/29/17 22:20 RPR Titer Nonreactive (NONREACTIVE) 11/30/17 07:45 - Treatment Hospital Course: Detox Protocol Followed, Detoxed Safely, Responded well, Discharged Condition Good Patient has Accepted a Rehab Referral to: declined - Medication Discharge Medications: Ambulatory Orders NK [No Known Home Medication] 01/27/17 - Diagnosis (1) Opioid dependence with withdrawal Current Visit: No Status: Acute (2) Nicotine dependence Current Visit: No Status: Chronic Qualifiers: Nicotine product type: cigarettes Substance use status: in withdrawal Qualified Code(s): F17.213 - Nicotine dependence, cigarettes, with withdrawal (3) Insomnia Current Visit: No Status: Chronic (4) Weight loss Current Visit: Yes Status: Acute - AMA Did Patient Leave Against Medical Advice: No
[2017-12-04 09:55] VITALS: PULSE 87
[2017-12-04] MEDS: PRENATAL VITAMINS W/ FOLIC ACID TABLET (FP) PO SCH (12:14)
[2017-12-04 15:13] VITALS: BP 124/67; TEMP 98
== END 2017-12-04 15:10 | disposition other institution (70) | DRG 773 ==
LOC: YASAS 11:40 → Y6N 17:31
PROVIDERS: ADMIT Surgery; ATTEND Surgery
PROC: HZ2ZZZZ Detoxification Services for Substance Abuse Treatment (ICD-10-PCS; principal; 2017-11-29)
DX: F11.23 Opioid dependence with withdrawal (principal); F17.213 Nicotine dependence, cigarettes, with withdrawal; F19.24 Other psychoactive substance dependence with psychoactive substance-induced mood disorder; F19.282 Other psychoactive substance dependence with psychoactive substance-induced sleep disorder; G47.00 Insomnia, unspecified; Z87.898 Personal history of other specified conditions; Z59.0 Homelessness
CPT/HCPCS: 36415; 80053; 81003; 81015; 85027; 86593; 93005; 93010

== ENCOUNTER 2017-12-04 15:12 | Inpatient (IN) | payer OTHER ==
--- NOTE | 2017-12-04 15:51 | HP ---
[facility] Rehab Assess/Revision - Admission History Admitted to Rehab from: Y 6 Show Low Date of Admission to Rehab: 12/04/17 - Vital signs Vital Signs: Vital Signs Period Temp Pulse Resp BP Sys/[place] Pulse Ox Last 24 Hr 99.0 F 110 18 128/71 - Findings Detox History & Physical reviewed: Yes Concur with findings: Yes Comments/Additional Findings: transfeerred from detox to rehab admission as per protocol Inpatient Rehab Admission - Rehab Admission Criteria Previous failed treatment: Yes Poor recovery environment: Yes Comorbidities: Yes Lacks judgement: No Patient is meeting Inpatient Rehab admission criteria:: Yes
[2017-12-04] MEDS ORDERED: MAGNESIUM HYDROX 2400MG/30ML ORAL SUSPENSION 30 ML CUP PO PRN (15:52)
[2017-12-04] MEDS ORDERED: NICOTINE POLACRILEX 2 MG GUM BUC PRN (15:52)
[2017-12-04] MEDS ORDERED: ACETAMINOPHEN 325 MG TABLET (FP) PO PRN (15:52)
[2017-12-04] MEDS ORDERED: LOPERAMIDE HCL 2 MG CAPSULE PO PRN (15:52)
[2017-12-04] MEDS ORDERED: MENTHOL/PHENOL 1 EACH UD MM PRN (15:52)
[2017-12-04] MEDS ORDERED: guaiFENesin/D-METHORPHAN HB 10 ML UNIT-DOSE CUPS PO PRN (15:52)
[2017-12-04] MEDS ORDERED: MAG HYDROX/AL HYDROX/SIMETH 30 ML UNIT-DOSE CUP PO PRN (15:52)
[2017-12-04] MEDS ORDERED: IBUPROFEN 400 MG TABLET (FP) PO PRN (15:52)
[2017-12-04] MEDS ORDERED: MAGNESIUM CITRATE 300 ML BOTTLE PO PRN (15:52)
[2017-12-04] MEDS ORDERED: P-EPHED 60MG/TRIPROLIDI 2.5MG TABLET PO PRN (15:52)
[2017-12-04] MEDS ORDERED: NICOTINE 14 MG/24 HOURS TOPICAL PATCH TD PRN (16:45)
[2017-12-04] MEDS: THIAMINE HCL 100 MG TABLET (FP) PO SCH (21:46)
[2017-12-04] MEDS: MELATONIN 5 MG TABLETS PO PRN (21:46)
--- NOTE | 2017-12-05 09:56 | HP ---
Psychiatrist Admission - Data Date of interview: 12/05/17 Admission source: 6N Identifying data: This is the second 5N inpatient rehabilitation admission for this 27 year old single male, who is unemployed and currently homeless. Medical History: Unremarkable. Smokes cigarettes 1 ppd Psychiatric History: Denies history of previous psychiatric treatment. Physical/Sexual Abuse/Trauma History: denies history of sexual, physical and verbal abuse Vital Signs: Vital Signs - 24 hr 12/04/17 12/05/17 12/05/17 15:45 00:30 03:30 Temperature 99.0 F Pulse Rate 110 H Respiratory 18 18 Rate Blood Pressure 128/71 12/05/17 07:12 Temperature 97.8 F Pulse Rate 81 Respiratory 16 Rate Blood Pressure 115/46 Allergies/Adverse Reactions: Allergies Allergy/AdvReac Type Severity Reaction Status Date / Time No Known Drug Allergies Allergy Unknown Verified 12/04/17 15:37 NKDA Allergy Uncoded 12/04/17 15:37 Date of last physical exam: 12/05/17 Concur with the findings of this exam: Yes - Substance Abuse/Tx History Hx Alcohol Use: No Hx Substance Use: Yes Substance Use Type: Heroin (started at age of 22, daily injecting 4-5 bags a day ) Hx Substance Use Treatment: Yes Mental Status Exam - Mental Status Exam Alert and Oriented to: Time, Place, Person Cognitive Function: Good Patient Appearance: Well Groomed Affect: Appropriate, Mood Congruent Patient Behavior: Appropriate, Cooperative Speech Pattern: Clear, Appropriate Voice Loudness: Normal Thought Process: Intact, Goal Oriented Thought Disorder: Not Present Hallucinations: Denies Suicidal Ideation: Denies Homicidal Ideation: Denies Insight/Judgement: Fair Sleep: Fair Appetite: Good Muscle strength/Tone: Normal Gait/Station: Normal Psychiatric Findings - Problem List ([place] 1, 2,3) (1) Nicotine dependence Current Visit: No Status: Chronic Qualifiers: Nicotine product type: cigarettes Substance use status: in withdrawal Qualified Code(s): F17.213 - Nicotine dependence, cigarettes, with withdrawal - Initial Treatment Plan Initial Treatment Plan: will monitor progress as needed.
[2017-12-05] MEDS: PRENATAL VITAMINS W/ FOLIC ACID TABLET (FP) PO SCH (10:40)
[2017-12-05] MEDS: THIAMINE HCL 100 MG TABLET (FP) PO SCH (21:29)
[2017-12-05] MEDS: MELATONIN 5 MG TABLETS PO PRN (21:29)
[2017-12-06] MEDS: PRENATAL VITAMINS W/ FOLIC ACID TABLET (FP) PO SCH (10:26)
[2017-12-06] MEDS: THIAMINE HCL 100 MG TABLET (FP) PO SCH (21:46)
[2017-12-06] MEDS: MELATONIN 5 MG TABLETS PO PRN (21:47)
[2017-12-07] MEDS: PRENATAL VITAMINS W/ FOLIC ACID TABLET (FP) PO SCH (10:12)
[2017-12-07] MEDS: THIAMINE HCL 100 MG TABLET (FP) PO SCH (21:52)
[2017-12-07] MEDS: MELATONIN 5 MG TABLETS PO PRN (21:52)
[2017-12-08] MEDS: PRENATAL VITAMINS W/ FOLIC ACID TABLET (FP) PO SCH (10:21)
[2017-12-08] MEDS: THIAMINE HCL 100 MG TABLET (FP) PO SCH (21:49)
[2017-12-08] MEDS: MELATONIN 5 MG TABLETS PO PRN (21:49)
[2017-12-09] MEDS: PRENATAL VITAMINS W/ FOLIC ACID TABLET (FP) PO SCH (10:36)
--- NOTE | 2017-12-09 12:53 | PN ---
[facility] Progress Note Note: c/o of dry skin. Vital Signs Temperature 97.6 F 12/09/17 07:36 Pulse Rate 87 12/09/17 07:36 Respiratory Rate 18 12/09/17 07:36 Blood Pressure 116/68 12/09/17 07:36 O2 Sat by Pulse Oximetry (%) increase fluids aveeno soap continue to monitor
[2017-12-09] MEDS: MELATONIN 5 MG TABLETS PO PRN (21:55)
[2017-12-09] MEDS: THIAMINE HCL 100 MG TABLET (FP) PO SCH (21:55)
[2017-12-10] MEDS: PRENATAL VITAMINS W/ FOLIC ACID TABLET (FP) PO SCH (10:40)
[2017-12-10] MEDS: MELATONIN 5 MG TABLETS PO PRN (21:30)
[2017-12-10] MEDS: THIAMINE HCL 100 MG TABLET (FP) PO SCH (21:30)
[2017-12-11] MEDS: PRENATAL VITAMINS W/ FOLIC ACID TABLET (FP) PO SCH (10:21)
[2017-12-11] MEDS ORDERED: HYDROCORTISONE 1% TOPICAL LOTION 118 ML BOTTLE TP PRN (12:56)
--- NOTE | 2017-12-11 12:59 | PN ---
S Progress Note Note: c/o of dry itchy skin around the chin and fire head. Vital Signs Temperature 98.0 F 12/10/17 06:47 Pulse Rate 76 12/10/17 06:47 Respiratory Rate 18 12/11/17 07:29 Blood Pressure 113/78 12/10/17 06:47 O2 Sat by Pulse Oximetry (%) A/P Patietn Aox3 in no apprent distress no adventitious breath sounds skin intact, dryness and redness on chin and forehead - skin dermatitis Plan: increase fluids hydrocortisone lotion BID aveeno soap skin precautions continue to monitor
[2017-12-11] MEDS: MELATONIN 5 MG TABLETS PO PRN (21:48)
[2017-12-11] MEDS: COLLOIDAL OATMEAL 1 BAR EACH TP PRN (21:48)
[2017-12-11] MEDS: THIAMINE HCL 100 MG TABLET (FP) PO SCH (21:48)
[2017-12-12] MEDS: PRENATAL VITAMINS W/ FOLIC ACID TABLET (FP) PO SCH (10:26)
[2017-12-12] MEDS: MELATONIN 5 MG TABLETS PO PRN (21:30)
[2017-12-12] MEDS: THIAMINE HCL 100 MG TABLET (FP) PO SCH (21:30)
[2017-12-13] MEDS: PRENATAL VITAMINS W/ FOLIC ACID TABLET (FP) PO SCH (10:49)
[2017-12-13] MEDS: MELATONIN 5 MG TABLETS PO PRN (21:36)
[2017-12-13] MEDS: THIAMINE HCL 100 MG TABLET (FP) PO SCH (21:36)
[2017-12-14] MEDS: PRENATAL VITAMINS W/ FOLIC ACID TABLET (FP) PO SCH (10:27)
[2017-12-14] MEDS: THIAMINE HCL 100 MG TABLET (FP) PO SCH (21:34)
[2017-12-14] MEDS: MELATONIN 5 MG TABLETS PO PRN (21:34)
[2017-12-15] MEDS: PRENATAL VITAMINS W/ FOLIC ACID TABLET (FP) PO SCH (10:26)
[2017-12-15] MEDS: THIAMINE HCL 100 MG TABLET (FP) PO SCH (21:55)
[2017-12-15] MEDS: MELATONIN 5 MG TABLETS PO PRN (21:55)
[2017-12-16] MEDS: PRENATAL VITAMINS W/ FOLIC ACID TABLET (FP) PO SCH (10:31)
[2017-12-16] MEDS: THIAMINE HCL 100 MG TABLET (FP) PO SCH (21:36)
[2017-12-16] MEDS: MELATONIN 5 MG TABLETS PO PRN (21:36)
[2017-12-17] MEDS: PRENATAL VITAMINS W/ FOLIC ACID TABLET (FP) PO SCH (10:44)
[2017-12-17] MEDS: THIAMINE HCL 100 MG TABLET (FP) PO SCH (21:33)
[2017-12-17] MEDS: MELATONIN 5 MG TABLETS PO PRN (21:33)
[2017-12-18] MEDS: PRENATAL VITAMINS W/ FOLIC ACID TABLET (FP) PO SCH (10:36)
[2017-12-18] MEDS: MELATONIN 5 MG TABLETS PO PRN (21:32)
[2017-12-18] MEDS: THIAMINE HCL 100 MG TABLET (FP) PO SCH (21:32)
[2017-12-19] MEDS: PRENATAL VITAMINS W/ FOLIC ACID TABLET (FP) PO SCH (10:46)
[2017-12-19] MEDS: COLLOIDAL OATMEAL 1 BAR EACH TP PRN (10:47)
[2017-12-19] MEDS: MELATONIN 5 MG TABLETS PO PRN (21:42)
[2017-12-19] MEDS: THIAMINE HCL 100 MG TABLET (FP) PO SCH (21:42)
[2017-12-20] MEDS: PRENATAL VITAMINS W/ FOLIC ACID TABLET (FP) PO SCH (10:33)
[2017-12-20] MEDS: MELATONIN 5 MG TABLETS PO PRN (21:54)
[2017-12-20] MEDS: THIAMINE HCL 100 MG TABLET (FP) PO SCH (21:54)
[2017-12-21] MEDS: PRENATAL VITAMINS W/ FOLIC ACID TABLET (FP) PO SCH (10:48)
[2017-12-21] MEDS: MELATONIN 5 MG TABLETS PO PRN (21:43)
[2017-12-21] MEDS: THIAMINE HCL 100 MG TABLET (FP) PO SCH (21:43)
[2017-12-22] MEDS: PRENATAL VITAMINS W/ FOLIC ACID TABLET (FP) PO SCH (10:55)
[2017-12-22] MEDS: THIAMINE HCL 100 MG TABLET (FP) PO SCH (21:57)
[2017-12-22] MEDS: MELATONIN 5 MG TABLETS PO PRN (21:57)
[2017-12-23 07:08] VITALS: TEMP 98.1
[2017-12-23] MEDS: PRENATAL VITAMINS W/ FOLIC ACID TABLET (FP) PO SCH (10:42)
--- NOTE | 2017-12-23 13:22 | PN ---
Psychiatric Progress Note Vital Signs: Vital Signs Period Temp Pulse Resp BP Sys/[place] Pulse Ox Last 24 Hr 98.1 F 72 18-18 136/90 Date of Session: 12/23/17 Chief Complaint:: Discharge Note HPI: Patient addressing Opioid Dependence comorbid with Nicotine Dependence Current Medications: Active Medications Generic Name Dose Route Start Last Admin Trade Name Freq PRN Reason Stop Dose Admin Acetaminophen 650 mg 12/04/17 15:52 Tylenol - PO Q4H PRN FEVER Al Hydroxide/Mg Hydroxide 30 ml 12/04/17 15:52 Mylanta Oral Suspension - PO Q6H PRN DYSPEPSIA Colloidal Oatmeal 1 applic 12/09/17 12:52 12/19/17 10:47 Aveeno Soap - TP 1 applic DAILY PRN Administration HYGEINE Eucalyptus/Menthol/Phenol/Sorbitol 1 each 12/04/17 15:52 Cepastat Lozenge - MM Q4H PRN SORE THROAT Guaifenesin 10 ml 12/04/17 15:52 Robitussin Dm - PO Q6H PRN COUGH Hydrocortisone 1 applic 12/11/17 12:56 Hytone 1% Lotion - TP BID PRN itch Ibuprofen 400 mg 12/04/17 15:52 Motrin - PO Q6H PRN Pain Level 4-6 Loperamide HCl 4 mg 12/04/17 15:52 Imodium - PO Q6H PRN DIARRHEA Magnesium Citrate 300 ml 12/04/17 15:52 Citroma - PO Q48H PRN CONSTIPATION Magnesium Hydroxide 30 ml 12/04/17 15:52 Milk Of Magnesia - PO DAILY PRN CONSTIPATION Melatonin 5 mg 12/04/17 22:00 12/22/17 21:57 Melatonin PO 5 mg HS PRN Administration INSOMNIA Nicotine 14 mg 12/04/17 16:45 Nicoderm Patch - TD DAILY PRN WITHDRAWAL(CONT SUBST) Nicotine Polacrilex 2 mg 12/04/17 15:52 Nicorette Gum - BUC Q2H PRN NICOTINE REPLACEMENT RX Multivit/Folic Acid/Iron 1 tab 12/05/17 10:00 12/23/17 10:42 Vitamins (Sjr) - PO 1 tab DAILY LONNIE Administration Pseudoephedrine/Triprolidine 1 combo 12/04/17 15:52 Actifed - PO TID PRN NASAL CONGESTION Thiamine HCl 100 mg 12/04/17 22:00 12/22/17 21:57 Vitamin B1 - PO 100 mg HS LONNIE Administration Current Side Effect: No Lab tests ordered: Yes Lab tests reviewed: Yes Provider note:: Patient will complete this program on 12/24/17. He has met his treatment goals and will continue to address his issues in [facility] residential treatment at [facility]. Told lyric writer that from his participation in this program, he has learned to make meeting and have a sponsor. He is stable for discharge on 12/24/17 Total face to face time:: 35 Mental Status Exam - Mental Status Exam Alert and Oriented to: Time, Place, Person Cognitive Function: Fair Patient Appearance: Well Groomed Mood: Hopeful, Euthymic Affect: Appropriate Patient Behavior: Cooperative Speech Pattern: Clear Voice Loudness: Normal Thought Process: Intact Thought Disorder: Not Present Hallucinations: Denies Suicidal Ideation: Denies Homicidal Ideation: Denies Insight/Judgement: Fair Sleep: Fair Appetite: Fair Muscle strength/Tone: Normal Gait/Station: Normal Psychiatric Treatment Plan - Problem List (1) Opioid dependence Current Visit: No (2) Nicotine dependence Current Visit: No Qualifiers: Nicotine product type: cigarettes Substance use status: in withdrawal Qualified Code(s): F17.213 - Nicotine dependence, cigarettes, with withdrawal Initial treatment plan: Patient will be discharged tomorrow and referred to [facility] for superintendent terminal residential treatment
[2017-12-23] MEDS: THIAMINE HCL 100 MG TABLET (FP) PO SCH (21:47)
[2017-12-23] MEDS: MELATONIN 5 MG TABLETS PO PRN (21:47)
[2017-12-24 07:02] VITALS: BP 144/89; PULSE 96
[2017-12-24] MEDS: PRENATAL VITAMINS W/ FOLIC ACID TABLET (FP) PO SCH (10:52)
== END 2017-12-24 11:20 | disposition home or self-care (01) | DRG 772 ==
LOC: YASAS 15:12 → Y5N 15:13
PROVIDERS: ADMIT Psychiatry & Neurology Psychiatry; ATTEND Psychiatry & Neurology Psychiatry
PROC: HZ42ZZZ Group Counseling for Substance Abuse Treatment, Cognitive-Behavioral (ICD-10-PCS; principal; 2017-12-04)
DX: F11.20 Opioid dependence, uncomplicated (principal); F17.213 Nicotine dependence, cigarettes, with withdrawal; L85.3 Xerosis cutis; Z59.0 Homelessness